=== PATIENT | female | born 1995 | race Caucasian/White ===

== ENCOUNTER 2023-01-11 12:45 | Outpatient (REF) | payer MEDICAID, SELFPAY | END 2023-01-11 12:46 | disposition home or self-care (01) | LOC: HO.LNP 12:45 | PROVIDERS: PCP Internal Medicine; Visit Provider Obstetrics & Gynecology | DX: R87.612 Low grade squamous intraepithelial lesion on cytologic smear of cervix (LGSIL) (principal) | CPT/HCPCS: 57454; 88305 ==

== ENCOUNTER 2023-02-16 14:37 | Outpatient (AMB) | payer MEDICAID, SELFPAY ==
[2023-02-16 14:37] VITALS: BP 118/70; BMI 22.1
--- NOTE | 2023-02-16 14:37 | A.OFFVIS_ITS ---
Intake Vital Signs 02/16/23 14:37 Height 5 ft 5 in Weight 133 lb BMI 22.1 BP 118/70 Blood Pressure Location Lt brachial Position Sitting Intake Visit Reasons: colpo follow up ok per whitney Allergies No Known Allergies Allergy (Unverified 02/16/23 14:39) HPI HPI Comments History of Present Illness Details Presenting post colpo for follow-up. The patient is doing well with no complaints. The pathology showed the following: A. Endocervix, curettage: Endocervical glandular mucosa; negative for dysplasia; no squamous mucosa present. B. Cervix, 1:00, biopsy: Squamous and endocervical glandular mucosa with marked inflammation and reactive changes; negative for dysplasia. C. Cervix, 3:00, biopsy: Squamous and endocervical glandular mucosa with marked inflammation and focal atypia consistent with low-grade squamous intraepithelial lesion (mild dysplasia, MICHAELA I). D. Cervix, 5:00, biopsy: Squamous and endocervical glandular mucosa with marked inflammation and reactive changes; negative for dysplasia. E. Cervix, 6:00, biopsy: Squamous and endocervical glandular mucosa with inflammation and reactive changes; negative for dysplasia. F. Cervix, 7:00, biopsy: Squamous and endocervical glandular mucosa with inflammation; negative for dysplasia. G. Cervix, 9:00, biopsy: Squamous and endocervical glandular mucosa; negative for dysplasia. H. Cervix, 11:00, biopsy: Squamous and endocervical glandular mucosa with marked inflammation and reactive changes; negative for dysplasia. I. Cervix, 12:00, biopsy: Squamous and endocervical glandular mucosa; negative for dysplasia. PFSH Family History Father Asthma Paternal Grandmother Diabetes Mother Pneumonia Paternal Grandfather Prostate cancer Social History Household Members: Family Housing: Apartment Alcohol intake: current Alcohol intake frequency: holidays/special occasions only Patient Tobacco Use Status: Former Tobacco user Current occupational status: employed Current occupation: [employer] Sexual orientation: Straight/Heterosexual Gender identity: Female Female Reproductive History Menstrual Date of last menstrual period: 01/24/23 Review of Systems Const All systems reviewed & are unremarkable except as noted in HPI and below Reports as per HPI and Reports no additional complaints GI Reports no additional complaints Reports no additional complaints Physical Exam Vital Signs: Last Vital Signs BP 118/70 02/16/23 14:37 BMI result Body Mass Index 22.1 Assessment & Plan Assessment & Plan (1) Dysplasia of cervix, low grade (MICHAELA 1): Code(s): N87.0 - Mild cervical dysplasia Plan: Discussed with the patient the pathology results of the colposcopy biopsies & endocervical curettage ( mild dysplasia-MICHAELA 1). Discussed with the patient the sensitivity specificity, positive and negative predictive value in detecting cervical cancer in addition discussed the regression, persistence and progression rates. Recommended co-testing in 12 months, if cytology and or HPV are abnormal will proceed was colposcopy biopsy and endocervical curettage, if lesions gets worse or stays persistent for 2 years will proceed with loop electric excision procedure. Instructions given to the patient to schedule a co test appointment in 1 year. All questions answered the patient verbalized understanding. Coding Level of Care Code Est Pt Level 3 (77845) Diagnoses Dysplasia of cervix, low grade (MICHAELA 1) N87.0
== END 2023-02-16 14:57 | disposition home or self-care (01) ==
LOC: HO.HWS 14:37
PROVIDERS: PCP Internal Medicine; Visit Provider Obstetrics & Gynecology
DX: N87.0 Mild cervical dysplasia (principal)
CPT/HCPCS: 99213

== ENCOUNTER → 2023-02-16 14:37 | Outpatient (BNVA) | payer MEDICAID, SELFPAY | PROVIDERS: PCP Internal Medicine; Visit Provider Obstetrics & Gynecology | DX: N87.0 Mild cervical dysplasia (principal) | CPT/HCPCS: 99212 ==

== ENCOUNTER 2023-12-05 14:54 | Outpatient (REF) | payer MEDICAID, SELFPAY ==
[2023-12-05 16:14] LABS: MANUAL DIFF FLAG NO
[2023-12-05 16:27] LABS: Basophils Percent Auto 0.4 % (0-2); Eosinophils Absolute Auto 0.1 X10*3/uL (0.0-0.4); Eosinophils Percent Auto 0.8 % (0-4); Hematocrit 41.8 % (37.0-47.0); Hemoglobin 14.3 g/dl (12.0-16.0); Imm Gran Abs Auto 0.04 X10*3/uL (0.00-0.03); Imm Gran Pct Auto 0.6 % (0.0-0.4); Lymphocytes Absolute Auto 1.7 X10*3/uL (1.2-4.9); Lymphocytes Percent Auto 22.8 % (20-40); Mean Corpuscular HGB Conc 34.2 g/dl (31.0-35.0); Mean Corpuscular Hemoglobin 30.8 pg (27.0-33.0); Mean Corpuscular Volume 89.9 fL (80.0-98.0); Mean Platelet Volume 10.6 fL (9.4-12.3); Monocytes Absolute Auto 0.6 X10*3/uL (0.1-1.2); Monocytes Percent Auto 7.8 % (2-11); Neutrophils Absolute Auto 4.9 x10*3/uL (2.0-8.3); Neutrophils Percent Auto 67.6 % (45-73); Platelet Count 328 X10*3/uL (160-400); Red Blood Count 4.65 X10*6/uL (4.20-5.50); Red Cell Distribution Width 12.2 % (11.0-16.0); White Blood Count 7.3 X10*3/uL (4.8-10.8)
[2023-12-05 16:53] LABS: Alanine Aminotransferase 12 U/L (0-31); Albumin Level 4.3 g/dL (3.5-5.0); Alkaline Phosphatase 59 U/L (39-117); Anion Gap 12 (12-20); Aspartate Amino Transferase 17 U/L (5-31); Bilirubin Direct 0.2 mg/dL (0.0-0.5); Bilirubin Total 0.4 mg/dL (0.0-1.0); Blood Urea Nitrogen 7 mg/dL (9-16); Calcium 9.6 mg/dL (8.4-10.2); Carbon Dioxide 26 mmol/L (22-29); Chloride 105 mmol/L (96-108); Cholesterol 174 mg/dL (<200); Estimated Glomerular Filt Rate > 60; Glucose Random 96 mg/dL (60-115); HDL Cholesterol 61 mg/dL (>40); LDL Cholesterol Calculated 96 mg/dL (<100); Potassium 3.8 mmol/L (3.3-5.1); Sodium 139 mmol/L (135-145); Total Protein 7.7 g/dL (6.5-8.0); Triglycerides 87 mg/dL (<150)
[2023-12-06 04:26] LABS: HBS Num1 > 1000.00 mIU/mL (0-7.99); HBc Num1 0.07 S/CO (0.00-0.79); HBsAGNum1 0.25 S/CO (0.00-0.99); Hepatitis B Core Antibody Nonreactive (Nonreactive); Hepatitis B Surface Antigen Negative (Negative); ~HepC Num1 0.24 S/CO (0.00-0.79); ~Hepatitis B Surface Antibody REACTIVE (Nonreactive); ~Hepatitis C Antibody Nonreactive (Nonreactive)
[2023-12-06 04:43] LABS: Hepatitis A Antibody IgM 0.21 Index (0-0.79); ~Hepatitis A Antibody IgM Nonreactive (Nonreactive)
[2023-12-06 09:08] LABS: RPR Rapid Plasma Reagin NON-REACTIVE (NON-REACTIVE)
[2023-12-08 15:59] LABS: HIV RNA PCR Qn Copies Not Detected Copies/mL; HIV RNA PCR Qn Log Copies Not Detected Log cps/mL
== END 2023-12-05 14:55 | disposition home or self-care (01) ==
LOC: HO.HHCL 14:54
PROVIDERS: Visit Provider Internal Medicine
DX: Z00.00 Encounter for general adult medical examination without abnormal findings (principal)
CPT/HCPCS: 36415; 80048; 80061; 80076; 85025; 86592; 86704; 86706; 86709; 86803; 87340; 87536; 87900

== ENCOUNTER 2024-09-25 11:03 | Outpatient (REF) | payer MEDICAID, SELFPAY ==
--- NOTE | ~2024-09-25 | XR_ITS ---
EXAMINATION: XR CHEST CLINICAL INFORMATION: One month of cough, wheezing, chest congestion COMPARISON: None available. TECHNIQUE: 2 views of the chest were obtained. FINDINGS: No consolidation, pleural effusion or pneumothorax. Cardiomediastinal silhouette size is normal. Mild S-shaped curvature of the thoracic spine. No hyperinflation. XR/XR chest 2V IMPRESSION: No acute airspace disease. Mild scoliosis, thoracic spine. Electronically signed by: Jason Tarango MD 09/25/2024 11:18 AM BISI
--- OUTSIDE RECORDS SUMMARY | 2024-09-25 13:27 | XMS_ITS | Encounter Summary ---
Author Organization [employer] Address [address] [place] [address] Care Team Providers Care Barrel Scraper Name Role Phone Tiffanie Muñoz MD Primary Care Provide r Encounter Details Date Type Department Care Team (Latest Contact Info) Description 09/11/2024 Travel Social History Tobacco Use Types Packs/Day Years Used Date Smoking Tobacco: Never Passive Smoke Exposure: Never Smokeless Tobacco: Never Alcohol Use Standard Drinks/Week Comments Never 0 (1 standard drink = 0.6 oz pur e alcohol) Alcohol Answer Date Recorded Frequency of Alcohol Consumption Not on file 12/05/2023 Average Number of Drinks Not on file 024 Frequency of Binge Drinking Not on file 12/2023 Score 0 12/05/2023 Depression Answer Date Recorded Patient Health Questionnaire-9 Score 3 09/11/2024 Patient Health Questionnaire-9 Score 3 09/11/2024 Last PHQ-9: Questionnaire Data Not on file 0 09/11/2024 Housing Stability Answer Date Recorded What is your housing situation today? I have ana m hein 11/28/[address] you li ve. Do you have problems with any of the following? None of the above 11/28/2023 Food Insecurity Answer Date Recorded Within the past 12 months, y ou worried that your food would run out before you got money to buy more: Never True 11/28/2023 Within the past 12 months,th e food you bought just didn't last and you didn't have enough money to get more: Never True Transportation Answer Date Recorded In the past 12 months, has l ack of transportation kept you from medical appts, meetings, work or from getting things needed for daily living? No 11/28/2023 Utilities Answer Date Recorded In the past 12 months, has t he electric, gas, oil or water company threatened to shut off services in your home? No 11/28/2023 Depression Answer Date Recorded Patient Health Questionnaire-2 Score 3 09/11/2024 Comments Unknown Sex and Gender Information Value Date Recorded Sex Assigned at Female 05/31/2022 10:18 AM EDT Legal Sex Female 10:18 AM EDT Gender Identity Female 05/31/2022 10:18 AM EDT Sexual Orientation Choose not to disclose 2021 10:18 AM EDT documented as of this encounter Plan of Treatment Upcoming Encounters Date Type Department Care Team (Late st Contact Info) Description 12/11/2024 1:45 PM EDT Office Visit [facility] [address] [place] [phone] Tiffanie Muñoz MD [address] [place] [phone] documented as of this encounter Visit Diagnoses Not on filedocumented in this encounter Additional Health Concerns Assessment Noted Time PHQ-9 Depression Total Score: 3 09/11/19 25 11:16 AM EST documented as of this encounter Care Teams Barrel Scraper Relationship Specialty Start Date End Date Tiffanie Muñoz MD [address] [place] [id number] PCP - General Family Medicine 11/21/18 documented as of this encounter
--- OUTSIDE RECORDS SUMMARY | 2024-09-25 13:27 | XMS_ITS | Encounter Summary ---
Author Organization [employer] Address [address] [place] [address] Care Team Providers Care Respiratory Therapy Manager Name Role Phone Tiffanie Muñoz MD Primary Care Provide r Reason for Visit * Reason Onset Date Comments Med Refill 08/24/2024 Encounter Details Date Type Department Care Team ([facility] st Contact Info) Description 08/24/2024 Refill [facility] [address] [place] [address] Tiffanie Muñoz MD [address] [place] [address] Anxiety with depression Social History Tobacco Use Types Packs/Day Years [...] Answer Date Recorded Patient Health Questionnaire-9 Score 15 07/13/2024 Patient Health Questionnaire-9 Score 15 07/13/2024 Last PHQ-9: Questionnaire Data Not on file 1 09/13/2023 Housing Stability Answer Date Recorded What is [...] Answer Date Recorded Patient Health Questionnaire-2 Score 2 07/13/2024 Comments Unknown Sex and Gender Information Value Date Recorded Sex Assigned at Female 05/31/2022 10:18 AM EDT Legal Sex Female 10:18 AM EDT Gender Identity Female 05/31/2022 10:18 AM EDT Sexual Orientation Choose not to disclose 2021 10:18 AM EDT documented as of this encounter Miscellaneous Notes * Telephone Encounter - Marianela Moreno RN - 08/27/2024 2:08 PM EST Called pt. She states that she has been having a cough and congestion x 1 month. Pt does not have SOB and has not needed her inhaler. Pt. States that nasal congestion and cough is green most of the time and has not gone away with home care recs. Protocol Used: Cough/congestion/phlegm/mucous (Adult) Protocol-Based Disposition: Uber ride ordered for pt. For 08/28/24 at 8am for [facility] walk in clinic. Video visit not offered Positive Triage Questions: * Cough has been present for > 3 weeks *green discharge from nose and lungs * Nasal discharge present > 10 days * All higher-acuity triage questions were negative Care Advice Discussed: * Reassurance and Education - Cough * Cough Medicines * Coughing Spells * Prevent Dehydration * Avoid Tobacco Smoke * Humidifier * Expected Course * Reassurance and Education - Common Cold Symptoms * For a Runny Nose - Blow Your Nose * Nasal Washes for a Stuffy Nose * Nasal Washes - [place] Instructions * Medicines for Stuffy or Runny Nose documented in this encounter Plan of Treatment Upcoming Encounters Date Type Department Care Team (Late st Contact Info) Description 12/11/2024 1:45 PM EDT Office Visit [facility] [address] [place] [address] Tiffanie Muñoz MD [address] [place] [address] documented as of this encounter Visit Diagnoses Diagnosis Anxiety with depression documented in this encounter Additional Health Concerns Assessment Noted Time PHQ-9 Depression Total Score: 15 024 9:04 AM EST documented as of this encounter Care Teams Respiratory Therapy Manager Relationship Specialty Start Date End Date Tiffanie Muñoz MD [address] [place] [phone] PCP - General Family Medicine 11/21/18 documented as of this encounter
--- OUTSIDE RECORDS SUMMARY | 2024-09-25 13:28 | XMS_ITS | Encounter Summary ---
Author Organization [employer] Address [address] [place] [address] Care Team Providers Care [employer] Principal Name Role Phone Tiffanie Muñoz MD Primary Care Provide r Reason for Visit * Reason Onset Date Comments Nurse Triage 07/13/2024 Encounter Details Date Type Department Care Team ([facility] Contact Info) Description 07/13/2024 Telephone [facility] [address] [place] [address] Tiffanie Muñoz MD [address] [place], [place] [phone] Nurse Triage Social History Tobacco Use Types Packs/Day Years [...] the past 12 months, has t he [employer], gas, oil or water company threatened to [...] encounter Miscellaneous Notes * Telephone Encounter - Melani Gaona LPN - 07/13/2024 8:26 AM EST Triage call returned to patient who reports increased symptoms of anxiety and depression. Has worsened over the last week. First started whil with friends began to have shaking and panic for no knowncause. Finds that stress and anxiety makes her chest tight and she is crying for no reason. No changes in work, home, no recent trauma.Reports she was given medication a long time ago but it was too strong and made her sleepy during the day. Has stopped going to gym as she is afraid it will happen there. Eating well. No substance use. Tried a supplement to relieve anxiety x 1 with no noted effect. Denies HI/SI at time of call and agrees for [facility] to meet with her or call her at listed number. Disposition reviewed and patient in agreement with plan. ASK/PCP today at 9am. [facility] updated via 1720 call. Multiple (2) protocols were used on this call. Disposition for Call: See in Office or Video Visit within 3 Days Protocol Used: Anxiety and Panic Attack (Adult) Protocol-Based Disposition: See in Office or Video Visit within 3 Days Video visit not offered Positive Triage Questions: * Moderate anxiety (e.g., persistent or frequent anxiety symptoms; interferes with sleep, school, or work) * Panic attacks are increasing in frequency * All higher-acuity triage questions were negative Care Advice Discussed: * Reasons To Call Back - Anxiety or panic attacks continue - You feel like harming yourself - You become worse Protocol Used: Depression (Adult) Protocol-Based Disposition: See in Office or Video Visit within 3 Days Video visit not offered Positive Triage Questions: * Requesting to talk with a counselor (mental health worker, psychiatrist, etc.) * Patient wants to be seen * All higher-acuity triage questions were negative Care Advice Discussed: * Reasons To Call Back - You feel like harming yourself - You become worse * Telephone Encounter - Nilton Chan - 07/13/2024 8:15 AM EST Symptom: Anxiety or Panic Attack Outcome: Schedule an urgent appointment (within 4 hours) or talk to a nurse or provider soon Reason: Anxiety keeps from normal daily activities (such as school or work) The caller accepted this outcome. Contact pt at [phone] documented in this encounter Plan of Treatment Upcoming Encounters Date Type Department Care Team (Late st Contact Info) Description 12/11/2024 1:45 PM EDT Office Visit [facility] [address] [place] [address] Tiffanie Muñoz MD [address] [place] [address] documented as of this encounter Visit Diagnoses Not on filedocumented in this encounter Additional Health Concerns Assessment Noted Time PHQ-9 Depression Total Score: 15 024 9:04 AM EST documented as of this encounter Care Teams [employer] Principal Relationship Specialty Start Date End Date Tiffanie Muñoz MD [address] [place] [address] PCP - General Family Medicine 11/21/18 documented as of this encounter
--- OUTSIDE RECORDS SUMMARY | 2024-09-25 13:28 | XMS_ITS | Encounter Summary ---
Author Organization [employer] Address [address] [place] [address] Care Team Providers Care Faucet Polisher Name Role Phone Tiffanie Muñoz MD Primary Care Provide r Reason for Visit * Reason Onset Date Comments Hepatitis C Screening 09/10/2024 Encounter Details Date Type Department Care Team ([facility] Contact Info) Description 09/10/2024 Telephone [facility] [address] [place] [address] Kelly Nicholson MA Hepatitis C Screening Social History Tobacco Use Types Packs/Day Years [...] encounter Miscellaneous Notes * Telephone Encounter - Kelly Nicholson MA - 09/10/2024 4:27 PM EST Chart Prep Labs: not applicable Images: not applicable Vaccines due: yes Referrals: complete Screenings: Alcohol/Substance Use Screening HIV Screening Overdue care gaps: SDOH documented in this encounter Plan of Treatment Upcoming Encounters Date Type Department Care Team (Late st Contact Info) Description 12/11/2024 1:45 PM EDT Office Visit [facility] [address] [place] [address] Tiffanie Muñoz MD [address] [place] [address] documented as of this encounter Visit Diagnoses Not on filedocumented in this encounter Additional Health Concerns Assessment Noted Time PHQ-9 Depression Total Score: 15 024 9:04 AM EST documented as of this encounter Care Teams Faucet Polisher Relationship Specialty Start Date End Date Tiffanie Muñoz MD [address] [place] [id number] PCP - General Family Medicine 11/21/18 documented as of this encounter
--- OUTSIDE RECORDS SUMMARY | 2024-09-25 13:28 | XMS_ITS | Clinical Summary ---
Demographics Address [address] [place] [address] Work Phone Mobile Phone Email Address Preferred Language en Marital Status Single Sabianism Affiliation Unknown Race Other Race Ethnic Group or Author Organization [employer] Address [address] [place] [address] Care Team Providers Care Intermodal Customer Service Name Role Phone Tiffanie Muñoz MD Primary Care Provide r Allergies No known active allergies Medications * This document contains information received from the source organization and may not represent a complete record from that organization. triamcinolone (Kenalog) 0.1 % creamIndicatio ns:Rash Apply topically 2 times daily. 45 g 1 12/05/19 24 Active fluticasone (Flonase) 50 MCG/ACT nasal sprayIndicatio ns:Cough in adult patient Administer 1 spray into each nostril Once per day. Shake gently. Before first use, prime pump. After use, clean tip and replace cap. 16 g 1 08/30/19 25 026 Active hydrOXYzine HCl (Atarax) 25 MG tabletIndicati ons:Anxiety with depression Take 1 tablet (25 mg) by mouth every 8 (eight) hours if needed for anxiety for up to 20 days. 30 tablet 1 08/30/19 25 Active albuterol 108 (90 Base) MCG/ACT inhalerIndicat ions:Cough in adult patient Inhale 2 puffs every 6 (six) hours if needed for wheezing. 18 g 08/30/19 25 026 Active sertraline (Zoloft) 50 MG tabletIndicati ons:Depressive disorder,Anxie ty Take 1 tablet (50 mg) by mouth Once per day. 30 tablet 2 09/11/19 25 025 Active cetirizine (ZyrTEC) 10 MG tabletIndicati ons:Seasonal allergies Take 1 tablet (10 mg) by mouth Once per day. 90 tablet 09/11/19 25 Active fluticasone furoate (Arnuity Ellipta) 100 MCG/ACT inhaler Inhale 1 puff Once per day. Rinse mouth with water after use to reduce aftertaste and incidence of candidiasis. Do not swallow. 1 each 09/25/19 25 026 Active cetirizine (ZyrTEC) 10 MG tabletIndicati ons:Seasonal allergies TAKE 1 TABLET BY MOUTH EVERY DAY 90 tablet 1 02/27/20 24 025 Discontinued(Re order (will not trigger notification to Pharmacy)) sertraline (Zoloft) 25 MG tabletIndicati ons:Anxiety with depression Take 1 tablet (25 mg) by mouth Once per day. 30 tablet 1 07/13/20 24 025 Discontinued(Re order (will not trigger notification to Pharmacy)) hydrOXYzine HCl (Atarax) 25 MG tabletIndicati ons:Anxiety with depression Take 1 tablet (25 mg) by mouth every 8 (eight) hours if needed for anxiety for up to 20 days. 30 tablet 1 07/13/20 24 025 Discontinued(Re order (will not trigger notification to Pharmacy)) sertraline (Zoloft) 25 MG tabletIndicati ons:Anxiety with depression Take 1 tablet (25 mg) by mouth Once per day. 30 tablet 1 08/30/19 25 025 Discontinued Active Problems Problem Noted Date Diagnosed Date Anxiety with depression 07/13/2024 Assessment & Plan (07/13/2024 10:05 AM EST): Counseling done today N already intervene today I will start her on sertraline 25mg daily and hydroxyzine 25mg Q 8hrs PRN RTC 4 weeks televisit Encounter for preventive health examination 12/2023 Assessment & Plan (12/05/2023 4:17 PM EDT): See HPI Rash 12/05/2023 Seasonal allergies 12/05/2023 Assessment & Plan (09/11/2024 12:20 PM EST): Advised to try to avoid triggers Cetirizine prescription renewed today Anxiety 12/05/2023 Assessment & Plan (09/11/2024 12:19 PM EST): Extensive counseling done today I will increase her sertraline to 50 mg daily Continue with hydroxyzine 25 mg as needed Assessment & Plan (12/05/2023 4:17 PM EDT): We talked about non-medication interventions for anxiety including exercise, meditation, counseling, mindfulness practices, nataly chi. Also recommend consideration for medication start for persistent daily anxiety negatively impacting quality of life and activities. MICHAELA I (cervical intraepithelial neoplasia I) 12/2023 Assessment & Plan (12/05/2023 4:17 PM EDT): F/u with [facility] has an appointment in 2 months Pap smear for cervical cancer screening 11/10/19 23 Assessment & Plan (11/09/2022 10:26 AM EDT): PAP smear done samples send to lab Pelvic exam done today Patient will be contact with results RTC 1 year for PE Mild intermittent asthma 10/14/2022 Assessment & Plan (12/05/2023 4:17 PM EDT): Controlled c/w current interventions Depressive disorder 06/24/2014 Assessment & Plan (09/11/2024 12:19 PM EST): Sertraline increased to 50 mg daily Counseling done Adjustment disorder with mix ed disturbance of emotions and conduct 10/01/2013 Encounters * This document contains information received from the source organization and may not represent a complete record from that organization. Date Type Department Care Team Description 09/25/2024 10:00 AM EST Office Visit [facility] [address] [place] [phone] Name, MD Rj Cough in adult patient (Primary Dx); Wheezing; Chest congestion; Flu-like symptoms 09/24/2024 Telephone [facility] [address] [place] [address] Tiffanie Muñoz MD Nurse Triage 09/11/2024 11:30 AM EST Telemedicine [facility] [address] [place] [address] Tiffanie Muñoz MD Depressive disorder (Primary Dx); Anxiety; Seasonal allergies 09/11/2024 Travel 09/10/2024 Telephone [facility] [address] [place] [address] Kelly Nicholson [place] Hepatitis C Screening 08/30/2024 2:00 PM EST Office Visit [facility] [address] [place] [address] Renetta Caldera NP Cough in adult patient; Anxiety with depression 08/24/2024 Refill [facility] [address] [place] [address] Tiffanie Muñoz MD Anxiety with depression 07/13/2024 9:00 AM EST Office Visit [facility] [address] [place] [phone] Tiffanie Muñoz MD Anxiety with depression (Primary Dx) 07/13/2024 Travel 07/13/2024 Telephone [facility] [address] [place] [address] Tiffanie Muñoz MD Nurse Triage from Last 3 Months Immunizations Name Administration Dates Next Due DTaP 10/18/2000, 8,1997,06/03 HPV 9-Valent 11/09/2018,11/14/2015 HPV, Quadrivalent 10/31/2013 Hep B, Adolescent or Pediatric 1997,1997,1997 Hib (HbOC) 08/31/2000,199 8,1997,06/03 IPV 08/24/2001,199 8,1997,06/03 Influenza injectable quadriv alent preservative free 04/08/2020,05/12/2016,08/07/2014 Influenza, Split (incl. grover fied surface antigen) 10/31/2013,06/16/2012 MMR 08/24/2001,08/31/2000 Meningococcal MCV4P [id number]-135 10/19/2013 Moderna Covid-19 Vaccine 12+ 01/27/2021 Pfizer Covid-19 Vaccine 12+ 01/27/2021 Tdap 12/05/2023,10/19/2013 Social History Tobacco Use Types Packs/Day Years Used Date Smoking Tobacco: Never Passive Smoke Exposure: Never Smokeless Tobacco: Never Tobacco Cessation:Counseling Given: Not Answered Alcohol Use Standard Drinks/Week Comments Never 0 [...] not to disclose 2021 10:18 AM EDT Last Filed Vital Signs Vital Sign Reading Time Taken Comments Blood Pressure 125/69 09/25/2024 10:21 AM EST Pulse 89 09/25/2024 10:21 AM EST Temperature 36.9 ??C (98.4 ??F) 09/25/2024 10:[address] Respiratory Rate 18 09/25/2024 10:21 AM EST Oxygen Saturation 98% 09/25/2024 10:21 AM EST Inhaled Oxygen Concentration - - Weight 65.8 kg (145 lb) 09/25/2024 10:21 AM EST Height 165.1 cm (5' 5 ) 07/13/2024 9:02 AM EST Body Mass Index 24.13 07/13/2024 9:02 AM EST Plan of Treatment Upcoming Encounters Date Type Department Care Team (Late st Contact Info) Description 12/11/2024 1:45 PM EDT Office Visit [facility] [address] [place], [place] [phone] Tiffanie Muñoz MD [address] [place], [place] [phone] Health Maintenance Due Date Last Done Comments HIV Screening 1997 Hepatitis B Vaccines (4 of 4 - 4-dose series) 1997 1997, 1997, 1997 Family Planning (PISQ) 2012 Pneumococcal Vaccine: Pediatrics (0 to 5 Years) and At-Risk Patients (6 to 49) Years) (1 of 2 - PCV) 2016 COVID-19 Vaccine ( season) 2024 08/26/2021, 01/27/2021, 01/27/2021, Additional history exists Influenza Vaccine (#1) 2024 , 05/12/2016, 08/07/2014, Additional history exists Alcohol/Substance Use Screening 12/04/2024 12/05/2023 SDOH Screening 12/04/2024 12/05/2023 HPV/Cotest 01/04/2025 01/05/2024 Tobacco Screening 07/13/2025 07/13/2024 Depression Screening 09/11/2025 09/11/2024, 09/11/19 Pap Smear 01/04/2027 01/05/2024, 10/30, 11/09/2022 DTaP/Tdap/Td Vaccines (7 - Td or Tdap) 12/04/2033 12/05/2023, 10/19/2013, 10/18/2000, Additional history exists Zoster Vaccines (1 of 2) 2047 RSV Patients and Patients Aged 60 years or older (1 - 1-dose 75+ series) 2072 HIB Vaccines Completed 08/31/2000, 09/29, 1997, Additional history exists IPV Vaccines Completed 08/24/2001, 09/29, 1997, Additional history exists Meningococcal Vaccine Completed 10/19/2013 HPV Vaccines Completed 11/09/2018, 10/30, 10/31/2013 Hepatitis C Screening Completed 12/05/2023 Hepatitis A Vaccines Aged Out No long er eligible based on patient's age to complete this topic RSV under 20 months Aged Out No longe r eligible based on patient's age to complete this topic Rotavirus Vaccines Aged Out No longer eligible based on patient's age to complete this topic Procedures Procedure Name Priority Date/Time Associated Diagnosis Comments XR CHEST 2 VIEWS Routine 09/25/2024 11:0 4 AM EST Cough in adult patient POCT INFLUENZA B (ID NOW RAPID MOLECULAR) Routine 09/25/2024 10:18 AM EST Flu-like symptoms POCT INFLUENZA A (ID NOW RAPID MOLECULAR) Routine 09/25/2024 10:17 AM EST Flu-like symptoms POCT RAPID COVID ANTIGEN Routine 09/25/2024 10:02 AM EST Flu-like symptoms POCT INFLUENZA B (ID NOW RAPID MOLECULAR) Routine 08/30/2024 1:39 PM EST Cough in adult patient POCT INFLUENZA A (ID NOW RAPID MOLECULAR) Routine 08/30/2024 1:39 PM EST Cough in adult patient POCT RAPID COVID ANTIGEN Routine 08/30/2024 1:28 PM EST Cough in adult patient HM PAP/HPV Routine 01/05/2024 HEPATITIS PANEL, GENERAL Routine 12/05/2023 2:56 PM EDT Encounter for preventive health examination from Last 3 Months or Most Recently Relevant to Health Maintenance Results * XR Chest 2 Views (09/25/2024 11:04 AM EST) Anatomical Region Laterality Modality Chest Radiographic Ashlyn ging 09/25/2024 11:0 4 AM EST Narrative 09/25/2024 11:21 AM EST ?[facility] ?[address] ?[place] [address] ?XRay Report ? Signed ? Patient: Kathleen Allan ?MR#: [id number] ?? [id number] ? : 1995 ?Acct:[id number] ? Age/Sex: 29 / F ?ADM Date: 09/25/24 ? Loc: HO.HHCX ? Attending Dr: Rj Mendoza MD ? Ordering Physician: Rj Mendoza MD ?? Date of Service: 09/25/24 ?? Procedure(s): XR chest 2V ?? Accession Number(s): [id number] ? cc: Rj Mendoza MD ? EXAMINATION: ?? XR CHEST ? CLINICAL INFORMATION: ?? One month of cough, wheezing, chest congestion ? COMPARISON: ?? None available. ? TECHNIQUE: ?? 2 views of the chest were obtained. ? FINDINGS: ?? No consolidation, pleural effusion or pneumothorax. ?? Cardiomediastinal silhouette size is normal. ?? Mild S-shaped curvature of the thoracic spine. ?? No hyperinflation. ? XR/XR chest 2V ?? IMPRESSION: ?? No acute airspace disease. ?? Mild scoliosis, thoracic spine. ? Electronically signed by: ??Jason Tarango MD ??09/25/2024 11:18 AM ?? EST RP ? Dictated By: ?Jason Hagan MD ? Signed By: ?<Electronically signed by Jason Velazquez MD in OV> ? 09/25/24 1118 ? DD/ 1104 ? TD/TT: 09/25/24 1114 ? Director Of Community Services: ? Procedure Note Donotuseinterpreter, Image - 09/25/2024 [facility] [address] [place] [address] XRay Report Signed Patient: Kathleen Allan [facility]#: [id number] : 1995Acct:[id number] Age/Sex: 29 / FADM Date: 09/25/24 Loc: .HHX Attending Dr: Rj Mendoza MD Ordering Physician: Rj Mendoza MD Date of Service: 09/25/24 Procedure(s): XR chest 2V Accession Number(s): [id number] cc: Rj Mendoza MD EXAMINATION: XR CHEST CLINICAL INFORMATION: One month of cough, wheezing, chest congestion COMPARISON: None available. TECHNIQUE: 2 views of the chest were obtained. FINDINGS: No consolidation, pleural effusion or pneumothorax. Cardiomediastinal silhouette size is normal. Mild S-shaped curvature of the thoracic spine. No hyperinflation. XR/XR chest 2V IMPRESSION: No acute airspace disease. Mild scoliosis, thoracic spine. Electronically signed by: Jason Tarango MD 09/25/2024 11:18 AM EST Dictated By: Jason Hagan MD Signed By: <Electronically signed by Jason Velazquez MDin OV> 09/25/24 1118 DD/ 1104 TD/TT: 09/25/24 1114 Director Of Community Services: us Rj Mendoza MD IMG XR PROCEDURES Final Result * Influenza B (ID NOW Rapid Molecular) (09/25/2024 10:18 AM EST) Only the most recent of2 resultswithin the time period is included. Influenza B Negative Negative, Indeterminate [facility] Swab 09/25/2024 10:1 8 AM EST us Rj Mendoza MD POINT OF CARE TEST ENTER/EDIT OR DERABLES Final Result Performing Organization Address City/[facility]/ZIP Co de Phone Number [facility] [address] [place] [address] [phone] * Influenza A (ID NOW Rapid Molecular) (09/25/2024 10:17 AM EST) Only the most recent of2 resultswithin the time period is included. [facility] Influenza A Negative Negative, Indeterminate [facility] Swab 09/25/2024 10:1 7 AM EST Rj Name POINT OF CARE TEST ENTER/EDIT OR DERABLES Final Result Performing Organization Address [facility] Co de Phone Number [facility] [address] [place] [phone] * POCT Rapid COVID Ag (09/25/2024 10:02 AM EST) Only the most recent of2 resultswithin the time period is included. [facility] Rapid COVID Ag Negative Swab 09/25/2024 10:0 2 AM EST Rj Mendoza MD POINT OF CARE TEST ENTER/EDIT OR DERABLES Final Result * HM PAP/HPV (01/05/2024) [facility] Pap Smear 1. NILM 1. NILM HPV Not Detected Undetected, Indeterminat e, Quantitative , Not Detected [facility] Provider HEALTH MAINTENANCE Final Result * Hepatitis Panel, General (12/05/2023 2:56 PM EDT) [facility] Hepatitis A IgM Nonreactive Nonreactive [facility] Comment:IgM antibodies to MULLEN V not detected; does not exclude earlyacute or recovered HAV infection. ~Hepatitis B Surface Antibody REACTIVE Nonreactive [facility] Comment:REACTIVE: > 11.99 mI U/mL Hepatitis B Core Antibody Nonreactive Nonreactive [facility] Hepatitis C Antibody Nonreactive Nonreactive [facility] Comment:Antibodies to HCV no t detected; does not exclude early acuteHCV infection. Hepatitis B Surface Ag Negative Negative [facility] Blood 12/05/2023 2:56 PM EDT 12/05/2023 4:14 PM EDT Tiffanie Rivera MD LAB BLOOD ORDERABLES Final Result [facility] [address] [place] [phone] from Last 3 Months or Most Recently Relevant to Health Maintenance [facility] Care Teams [employer]modal Customer Service Relationship Specialty Start Date End Date Tiffanie Muñoz MD [address] [place] [address] PCP - General Family Medicine 11/21/18
--- OUTSIDE RECORDS SUMMARY | 2024-09-25 13:28 | XMS_ITS | Encounter Summary ---
Author Organization [employer] Address [address] [place] [address] Care Team Providers Care Grease Packer Name Role Phone Tiffanie Muñoz MD Primary Care Provide r Reason for Visit * Reason Comments Cough Encounter Details Date Type Department Care Team ([facility] Contact Info) Description 08/30/2024 2:00 PM EST Office Visit [facility] [address] [place], [place] [phone] Renetta Caldera NP [address] [place], [place] [phone] Cough in adult patient; Anxiety with depression Social History Tobacco Use [...] AM EDT documented as of this encounter Last Filed Vital Signs Vital Sign Reading Time Taken Comments Blood Pressure 130/78 08/30/2024 1:23 PM EST Pulse 98 08/30/2024 1:23 PM EST Temperature 36.8 ??C (98.3 ??F) 08/30/2024 1:23 PM ES T Respiratory Rate 16 08/30/2024 1:23 PM EST Oxygen Saturation 100% 08/30/2024 1:23 PM EST Inhaled Oxygen Concentration - - Weight 67.1 kg (148 lb) 08/30/2024 1:23 PM EST Height - - Body Mass Index 24.63 07/13/2024 9:02 AM EST documented in this encounter Progress Notes * Renetta Caldera NP - 08/30/2024 2:00 PM EST SUBJECTIVE: Kathleen West is a 29 y.o. female who presents to the [facility] for a sick visit. HPI Kathleen reports being sick in July and has persistent cough with mucous that makes her chest feel heavy sometimes. Says she has slight shortness of breath a night because of the mucous. She is able to cough up some of the sputum which she states is clearish-green. She has tried OTC cough medicines, nyquil, and mucinex with little effects Reports history of asthma as a child and bad acid reflux. Review of Systems Constitutional: Negative. Negative for chills and fever. HENT: Positive for congestion. Negative for postnasal drip, sinus pain and sneezing. Respiratory: Positive for cough and shortness of breath. Negative for chest tightness. Cardiovascular: Negative for chest pain. Gastrointestinal: Negative for abdominal pain, constipation, diarrhea and nausea. Genitourinary: Negative for dysuria. Musculoskeletal: Negative for arthralgias, back pain, myalgias and neck pain. Skin: Negative. Negative for rash and wound. Neurological: Negative for weakness, light-headedness and headaches. Psychiatric/Behavioral: Negative for behavioral problems, confusion, decreased concentration and suicidal ideas. OBJECTIVE: Visit Vitals BP 130/78 (BP Location: Left arm, Patient Position: Sitting, BP Cuff Size: Adult) Pulse 98 Temp 98.3 ??F (36.8 ??C) (Oral) Resp 16 Wt 148 lb (67.1 kg) SpO2 100% BMI 24.63 kg/m?? Smoking Status Never BSA 1.75 m?? Patient Active Problem List Diagnosis Adjustment disorder with mixed disturbance of emotions and conduct Depressive disorder Mild intermittent asthma Pap smear for cervical cancer screening Encounter for preventive health examination Rash Seasonal allergies Anxiety MICHAELA I (cervical intraepithelial neoplasia I) Anxiety with depression Physical Exam Vitals reviewed. Constitutional: General: She is not in acute distress. Appearance: Normal appearance. She is not ill-appearing. HENT: Head: Normocephalic and atraumatic. Right Ear: External ear normal. Left Ear: External ear normal. Nose: Nose normal. Mouth/Throat: Pharynx: Uvula midline. Postnasal drip present. No oropharyngeal exudate. Eyes: General: No scleral icterus. Extraocular Movements: Extraocular movements intact. Cardiovascular: Rate and Rhythm: Normal rate and regular rhythm. Pulses: Normal pulses. Heart sounds: Normal heart sounds. Pulmonary: Effort: Pulmonary effort is normal. No respiratory distress. Breath sounds: Normal breath sounds. Musculoskeletal: General: Normal range of motion. Cervical back: Normal range of motion and neck supple. Lymphadenopathy: Cervical: No cervical adenopathy. Neurological: General: No focal deficit present. Mental Status: She is alert and oriented to person, place, and time. Gait: Gait normal. Psychiatric: Mood and Affect: Mood normal. Behavior: Behavior normal. Assessment/Plan Diagnoses and all orders for this visit: Cough in adult patient Comments: -POCT COVID, Flu negative today -trial flonase as psotnasal gtt may be triggering the cough -continue OTC mucinex -increase fluids and avoid dairy products. Suck on cough drops/lozenges -albuterol inhaler prn shortness of breath Orders: - Influenza A (ID NOW Rapid Molecular) - Influenza B (ID NOW Rapid Molecular) - POCT Rapid COVID Ag - fluticasone (Flonase) 50 MCG/ACT nasal spray; Administer 1 spray into each nostril Once per day. Shake gently. Before first use, prime pump. After use, clean tip and replace cap. - albuterol 108 (90 Base) MCG/ACT inhaler; Inhale 2 puffs every 6 (six) hours if needed for wheezing. Anxiety with depression Comments: med refilled per patient request Orders: - sertraline (Zoloft) 25 MG tablet; Take 1 tablet (25 mg) by mouth Once per day. - hydrOXYzine HCl (Atarax) 25 MG tablet; Take 1 tablet (25 mg) by mouth every 8 (eight) hours if needed for anxiety for up to 20 days. documented in this encounter Plan of Treatment Upcoming Encounters Date Type Department Care Team (Late st Contact Info) Description 12/11/2024 1:45 PM EDT Office Visit [facility] [address] [place] [address] Tiffanie Muñoz MD [address] [place] [phone] documented as of this encounter Procedures Procedure Name Priority Date/Time Associated Diagnosis Comments POCT INFLUENZA B (ID NOW RAPID MOLECULAR) Routine 08/30/2024 1:39 PM EST Cough in adult patient POCT INFLUENZA A (ID NOW RAPID MOLECULAR) Routine 08/30/2024 1:39 PM EST Cough in adult patient POCT RAPID COVID ANTIGEN Routine 08/30/2024 1:28 PM EST Cough in adult patient documented in this encounter Results * Influenza B (ID NOW Rapid Molecular) (08/30/2024 1:39 PM EST) [facility] Influenza B Negative Negative, Indeterminate [facility] Swab 08/30/2024 1:39 PM EST us Renetta Appram CHECKERING MACHINE OPERATOR POINT OF CARE TEST ENTER/EDIT O RDERABLES Final Result Performing Organization Address City/[facility]/ZIP Co de Phone Number [facility] [address] [place] [phone] * Influenza A (ID NOW Rapid Molecular) (08/30/2024 1:39 PM EST) [facility] Influenza A Negative Negative, Indeterminate [facility] Swab 08/30/2024 1:39 PM EST us Renetta Appram CHECKERING MACHINE OPERATOR POINT OF CARE TEST ENTER/EDIT O RDERABLES Final Result Performing Organization Address [facility]/ZIP Co de Phone Number [facility] [address] [place] [phone] * POCT Rapid COVID Ag (08/30/2024 1:28 PM EST) [facility] Rapid COVID Ag Negative Swab 08/30/2024 1:28 PM EST us Renetta Appram CHECKERING MACHINE OPERATOR POINT OF CARE TEST ENTER/EDIT O RDERABLES Final Result documented in this encounter Visit Diagnoses Diagnosis Cough in adult patient Anxiety with depression documented in this encounter Additional Health Concerns Assessment Noted Time PHQ-9 Depression Total Score: 15 12/2 024 9:04 AM EST documented as of this encounter Care Teams Grease Packer Relationship Specialty Start Date End Date Tiffanie Muñoz MD [address] [place] [phone] PCP - General Family Medicine 11/21/18 documented as of this encounter
--- OUTSIDE RECORDS SUMMARY | 2024-09-25 13:28 | XMS_ITS | Encounter Summary ---
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) Social History Tobacco Use Types Packs/Day Years Used Date Smoking Tobacco: Never Passive Smoke Exposure: Never Smokeless Tobacco: Never Depression Answer Date Recorded Patient Health Questionnaire-9 Score 0 11/09/2022 Depression Answer Date Recorded Patient Health Questionnaire-2 Score 0 11/09/2022 Comments Unknown Sex and Gender Information Value Date Recorded Sex Assigned at Female 05/31/2022 10:18 AM EDT Legal Sex Female 10:18 AM EDT Gender Identity Female 05/31/2022 10:18 AM EDT Sexual Orientation Choose not to disclose 2021 10:18 AM EDT COVID-19 Exposure Response Date Recorded In the last 10 days, have yo u been in contact with someone who was confirmed or suspected to have Coronavirus/COVID-19? No / Unsure 11/09/2022 9:15 AM EDT documented as of this encounter Plan of Treatment Upcoming Encounters Date Type Department Care Team (Late Contact Info) Description 12/11/2024 1:45 PM EDT Office Visit [facility] [address] [place] [address] Tiffanie Muñoz MD [address] [place] [address] documented as of this encounter Procedures Procedure Name Priority Date/Time Associated Diagnosis Comments HEMATOXYLIN AND EOSIN STAIN Routine 01/11/2023 1:41 PM EDT LGSIL on Pap smear of cervix documented in this encounter Results * Hematoxylin and Eosin Stain (01/11/2023 1:41 PM EDT) 01/11/2023 1:41 PM EDT 01/12/2023 7:25 AM EDT [facility] - 01/18/2023 2:11 PM EDT ----- ------- Name: Kathleen Allan ? Age/Sex: 27/F ? : 1995 Unit#: [id number] ?? Attend Dr: Cassius Steiner MD ?Re01/11/23 ?Status: DEP REF ? Location: HO.LNP ?Disch: ? ----- ------- SPEC : [id number] ? RECD: 01/12/23 ? STATUS: ??SOUT ? REQ NUM: [id number] ? LUZ MARINA: 01/11/23 ? SUBM DR: Cassius Steiner MD ? ENTERED: ??01/12/23 ?SP TYPE: Surgical ? OTHR DR: Tiffanie Muñoz MD ? ORDERED: ??HE Stain/, Gross Micro L4/9 ? Diagnosis ?? A. ??Endocervix, curettage: ??Endocervical glandular mucosa; negative for dysplasia; no ?? squamous mucosa present. ? B. ??Cervix, 1:00, biopsy: ??Squamous and endocervical glandular mucosa with marked ?? inflammation and reactive changes; negative for dysplasia. ? C. ??Cervix, 3:00, biopsy: ??Squamous and endocervical glandular mucosa with marked ?? inflammation and focal atypia consistent with low-grade squamous intraepithelial lesion ?? (mild dysplasia, MICHAELA I). ? D. ??Cervix, 5:00, biopsy: ??Squamous and endocervical glandular mucosa with marked ?? inflammation and reactive changes; negative for dysplasia. ? E. ??Cervix, 6:00, biopsy: ??Squamous and endocervical glandular mucosa with inflammation ?? and reactive changes; negative for dysplasia. ? F. ??Cervix, 7:00, biopsy: ??Squamous and endocervical glandular mucosa with inflammation; ?? negative for dysplasia. ? G. ??Cervix, 9:00, biopsy: ??Squamous and endocervical glandular mucosa; negative for ?? dysplasia. ? H. ??Cervix, 11:00, biopsy: ??Squamous and endocervical glandular mucosa with marked ?? inflammation and reactive changes; negative for dysplasia. ? I. ??Cervix, 12:00, biopsy: ??Squamous and endocervical glandular mucosa; negative for ?? dysplasia. ? Comment: ??No previous Pap test at [facility] for correlation. ?Clinical History LGSIL on pap smear of cervix ?Microscopic Description Microscopic sections reviewed. ? CONTINUED ON NEXT PAGE ----- ------- Name: Kathleen Allan ? Age/Sex: 27/F ? : 1995 Unit#: [id number] ?? Attend Dr: Cassius Steiner MD ?Re01/11/23 ?Status: DEP REF ? Location: HO.LNP ?Disch: ? ----- ------- SPEC : [id number] ? RECD: 01/12/23 ? STATUS: ??SOUT ? REQ NUM: [id number] ? LUZ MARINA: 01/11/23 ? SUBM DR: Cassius Steiner MD ? ENTERED: ??01/12/23 ?SP TYPE: Surgical ? OTHR DR: Tiffanie Muñoz MD ? ORDERED: ??HE /, Gross Micro L4/9 ? Material Received ?? A: ECC ?? B: Cx bx 1 o'clock ?? C: Cx bx 3 o'clock ?? D: Cx bx 5 o'clock ?? E: Cx bx 6 o'clock ?? F: Cx bx 7 o'clock ?? G: Cx bx 9 o'clock ?? H: Cx bx 11 o'clock ?? I: Cx bx 12 o'clock ? Gross Description Received in 9 parts. Part A: ??Received in formalin labeled ?ECC? is a 0.4 x 0.3 x 0.1 cm aggregate of mucus and blood and delicate threads of douglas-brown tissue. ??The specimen is submitted in toto in a single cassette labeled A. Part B: ??Received in formalin labeled ?cx bx 1? is a 0.35 cm in greatest dimension glistening, semitranslucent, rubbery, douglas, wedge-shaped fragment of mucosa which is submitted in toto in a single cassette labeled B. Part C: ??Received in formalin labeled ?cx bx 3? along with a scant amount of cloudy globoid mucus is a 0.35 cm in greatest dimension glistening, semitranslucent, rubbery, genao-white wedge-shaped fragment of mucosa which is submitted in toto in a single cassette labeled C. Part D: ??Received in formalin labeled ?cx bx 5? is a 0.5 cm in greatest dimension glistening, semitranslucent, rubbery, genao-white wedge-shaped fragment of mucosa which is submitted in toto in a single cassette labeled D. Part E: ??Received in formalin labeled ?cx bx 6? is a 0.6 cm in greatest dimension glistening, semitranslucent, rubbery, douglas wedge-shaped fragment of mucosa which is submitted in toto in a single cassette labeled E. Part F: ??Received in formalin labeled ?cx bx 7? is a 0.6 cm in greatest dimension glistening, semitranslucent, rubbery, douglas wedge-shaped fragment of mucosa which is submitted in toto in a single cassette labeled F. Part G: ??Received in formalin labeled ?cx bx 9? is a 0.6 cm in greatest dimension glistening, semitranslucent, rubbery, douglas, wedge-shaped fragment of mucosa which is submitted in toto in a single cassette labeled G. ? CONTINUED ON NEXT PAGE ----- ------- Name: Kathleen Allan ? Age/Sex: 27/F ? : 1995 Unit#: [id number] ?? Attend Dr: Cassius Steiner MD ?Re01/11/23 ?Status: DEP REF ? Location: HO.LNP ?Disch: ? ----- ------- SPEC : [id number] ? RECD: 01/12/23 ? STATUS: ??SOUT ? REQ NUM: [id number] ? LUZ MARINA: 01/11/23 ? SUBM DR: Cassius Steiner MD ? ENTERED: ??01/12/23 ?SP TYPE: Surgical ? OTHR DR: Tiffanie Muñoz MD ? ORDERED: ??HE Stain/26, Gross Micro L4/9 ? Gross Description ?(Continued) Part H: ??Received in formalin labeled ?cx bx 11? is a 0.45 cm in greatest dimension glistening, semitranslucent, rubbery, douglas rectangular fragment of mucosa which is submitted in toto in a single cassette labeled H. Part I: ??Received in formalin labeled ?cx bx 12? is a 0.45 cm in greatest dimension glistening, semitranslucent, douglas, wedge-shaped fragment of mucosa which is submitted in toto in a single cassette labeled I. CEDS Copies To: ?? Tiffanie Muñoz MD ?? [address] [facility] ?? [place] [address] ?? [phone] ?? Cassius Steiner MD ?? [address] [facility] ?? [place] [address] ?? [phone] ----- ------- Signed (signature on file) Paula Jessica 01/18/23 1411 ? ----- ------- ? END OF REPORT ? us [facility] External Provider LAB BLO OD ORDERABLES Final Result [facility] [address] [place] [address] [phone] documented in this encounter Visit Diagnoses Diagnosis LGSIL on Pap smear of cervix- Primary documented in this encounter Additional Health Concerns Assessment Noted Time PHQ-9 Depression Total Score: 0 11/10/19 23 9:26 AM EDT documented as of this encounter Care Teams Fire Warden Relationship Specialty Start Date End Date Tiffanie Muñoz MD [address] [place] [address] PCP - General Family Medicine 11/21/18 documented as of this encounter
--- OUTSIDE RECORDS SUMMARY | 2024-09-25 13:28 | XMS_ITS | Encounter Summary ---
Author Organization [employer] Address [address] [place] [address] Care Team Providers Care Runstitching Machine Operator Name Role Phone Tiffanie Muñoz MD Primary Care Provide r Reason for Visit * Reason Comments Cough Encounter Details Date Type Department Care Team ([facility] Contact Info) Description 09/25/2024 10:00 AM EST Office Visit [facility] [address] [place], [place] [phone] Name, MD Rj [address] [place] [address] Cough in adult patient (Primary Dx); Wheezing; Chest congestion; Flu-like symptoms Social History Tobacco Use Types Packs/Day Years [...] the past 12 months, has t he [employer], gas, oil or water company threatened to [...] (145 lb) 09/25/2024 10:21 AM EST Height - - Body Mass Index 24.13 07/13/2024 9:02 AM EST documented in this encounter Progress Notes * Rj Mendoza MD - 09/25/2024 10:00 AM EST Subjective Patient ID: Kathleen West is a 29 y.o. female who presents for Cough. Patient comes complaining of 1 month of nonproductive cough, occasional wheezing, runny nose chest congestion. The patient tells me her symptoms are worse at night. She has a personal history of asthma. At the moment she uses albuterol several times a day and uses daily Flonase. She does not use any preventive inhaler. The patient explains to me that she stopped using preventive inhalers several years ago because her asthma used to be quite mild. No recent fevers or chills. Review of Systems Constitutional: Negative for chills and fever. HENT: Positive for rhinorrhea. Negative for sinus pain. Respiratory: Positive for cough, chest tightness, shortness of breath and wheezing. Cardiovascular: Negative for chest pain. Visit Vitals BP 125/69 (BP Location: Left arm, Patient Position: Sitting, BP Cuff Size: Adult) Pulse 89 Temp 98.4 ??F (36.9 ??C) (Temporal) Resp 18 Wt 145 lb (65.8 kg) SpO2 98% BMI 24.13 kg/m?? Smoking Status Never BSA 1.74 m?? Objective Physical Exam Constitutional: Appearance: Normal appearance. Cardiovascular: Rate and Rhythm: Normal rate and regular rhythm. Heart sounds: No murmur heard. No gallop. Pulmonary: Effort: Pulmonary effort is normal. No respiratory distress. Breath sounds: Normal breath sounds. No wheezing. Musculoskeletal: Right lower leg: No edema. Left lower leg: No edema. Neurological: Mental Status: She is alert. Latest Reference Range & Units 09/25/24 10:02 09/25/24 10:17 09/25/24 10:18 Influenza A Negative, Indeterminate Negative Influenza B Negative, Indeterminate Negative Rapid COVID Ag Negative Assessment/Plan Diagnoses and all orders for this visit: Cough in adult patient Comments: Patient symptoms are consistent with uncontrolled asthma. Today physical exam is unremarkable and she tested negative for COVID and flu. I recommended to start using a preventive inhaler. I sent Arnuity to her pharmacy for daily use. She is encouraged to continue using her albuterol and Flonase as prescribed. Evaluation with chest x-ray. Further recommendation based on the results and her response to the use of Arnuity. I told her she should expect to feel better next week. Orders: - XR Chest 2 Views; Future Wheezing Chest congestion Flu-like symptoms - Influenza A (ID NOW Rapid Molecular) - Influenza B (ID NOW Rapid Molecular) - POCT Rapid COVID Ag Other orders - fluticasone furoate (Arnuity Ellipta) 100 MCG/ACT inhaler; Inhale 1 puff Once per day. Rinse mouth with water after use to reduce aftertaste and incidence of candidiasis. Do not swallow. documented in this encounter Plan of Treatment Upcoming Encounters Date Type Department Care Team (Late st Contact Info) Description 12/11/2024 1:45 PM EDT Office Visit [facility] [address] [place] [address] Tiffanie Muñoz MD [address] [place] [address] documented as of this encounter Procedures Procedure [...] Routine 09/25/2024 10:02 AM EST Flu-like symptoms documented in this encounter Results * XR Chest 2 Views (09/25/2024 11:04 AM EST) Anatomical Region Laterality Modality Chest Radiographic Ashlyn ging 09/25/2024 11:0 4 AM EST Narrative 09/25/2024 11:21 AM EST ?[facility] ?[address] [facility] [address] ?[place] [address] ?XRay Report ? Signed ? Patient: Kamini West,Kathleen Vega ?MR#: [id number] ?? [id number] ? : 1995 ?Acct:[id number] ? Age/Sex: 29 / F ?ADM Date: 02/25/25 ? Loc: HO.HHCX ? Attending Dr: Rj Mendoza MD ? Ordering Physician: Rj Mendoza MD ?? Date of Service: 09/25/24 ?? Procedure(s): XR chest 2V ?? Accession Number(s): [id number] ? cc: Rj Mendoza MD ? EXAMINATION: [...] DD/ 1104 ? TD/TT: 09/25/24 1114 ? Creeler: ? Procedure Note Shantel, Image - 09/25/[address] [address] XRay Report Signed Patient: Kathleen Allan NMR#: [id number] : 1995Acct:[id number] Age/Sex: 29 FADM Date: 09/25/24 Loc: HO.HHCX Attending Dr: Rj Mendoza MD Ordering Physician: Rj Mendoza MD Date of Service: 09/25/24 Procedure(s): XR chest 2V Accession Number(s): [id number] cc: Rj Mendoza MD EXAMINATION: XR CHEST [...] 09/25/24 1118 DD/ 1104 TD/TT: 09/25/24 1114 Creeler: us Rj Mendoza MD IMG XR PROCEDURES Final Result * Influenza B (ID NOW Rapid Molecular) (09/25/2024 10:18 AM EST) Influenza B Negative Negative, Indeterminate [facility] Swab 09/25/2024 10:1 8 AM EST Result Justin Mendoza MD POINT OF CARE TEST ENTER/EDIT OR DERABLES Final Result Performing Organization Address [facility]/ZIP Co de Phone Number [facility] [address] [place] [phone] * Influenza A (ID NOW Rapid Molecular) (09/25/2024 10:17 AM EST) Influenza A Negative Negative, Indeterminate [facility] Swab 09/25/2024 10:1 7 AM EST Result Justin Mendoza MD POINT OF CARE TEST ENTER/EDIT OR DERABLES Final Result Performing Organization Address [facility] Co de Phone Number [facility] [address] [place] [phone] * POCT Rapid COVID Ag (09/25/2024 10:02 AM EST) Rapid COVID Ag Negative Swab 09/25/2024 10:0 2 AM EST Result Justin Mendoza MD POINT OF CARE TEST ENTER/EDIT OR DERABLES Final Result documented in this encounter Visit Diagnoses Diagnosis Cough in adult patient- Primary Wheezing Chest congestion Other symptoms involving respiratory system and chest Flu-like symptoms documented in this encounter Additional Health Concerns Assessment Noted Time PHQ-9 Depression Total Score: 3 09/11/19 25 11:16 AM EST documented as of this encounter Care Teams Runstitching Machine Operator Relationship Specialty Start Date End Date Tiffanie Muñoz MD [address] [place] [address] PCP - General Family Medicine 11/21/18 documented as of this encounter
--- OUTSIDE RECORDS SUMMARY | 2024-09-25 13:28 | XMS_ITS | Encounter Summary ---
Author Organization [facility] Address [address] [place] [address] Care Team Providers Care Slab Grinder Name Role Phone Tiffanie Muñoz MD Primary Care Provide r Reason for Visit * Reason Onset Date Comments Nurse Triage 09/24/2024 Encounter Details Date Type Department Care Team ([facility] Contact Info) Description 09/24/2024 Telephone [facility] [address] [place] [address] Tiffanie Muñoz MD [address] [place], [place] [phone] Nurse Triage Social History Tobacco Use Types [...] Telephone Encounter - Melani Gaona LPN - 09/24/2024 12:57 PM EST Triage call returned to patient who reports that she has been sick since cough and congestion sinceDecember. Feels nauseous due to volume of mucous in her stomach. Is using inhaler frequently thru the day as needed and reports probably more then every 4 hours. Has nasal congestion and reports noseis sore and irritated. Has been using zyrtec and flonase as previously ordered with no noted relief. Has intermittent dizziness no fainting. Offered appt for today and offered [facility] transport and declined reporting that it did not work out last two times. Patient reports availability only tomorrow and Patient also provided [facility] hours and availability for today and tomorrow but wants tosee provider as she was seen in [facility] and felt she did not get full workup and feels that she needs an xray. No PCP appts available to book from Triage within protocol. Forwarded to PCP and team as FYIto follow up PRN Multiple (2) protocols were used on this call. Disposition for Call: Discuss with PCP and Callback by Nurse Today Protocol Used: Cough (Adult) Protocol-Based Disposition: See in Office or Video Visit Today or Tomorrow Override (Final) Disposition: Discuss with PCP and Callback by Nurse Today Override Reason: Caller refused suggested disposition Video visit not offered Positive Triage Question: * Patient wants to be seen * All higher-acuity triage questions were negative Care Advice Discussed: * Prevent Dehydration * Avoid Tobacco Smoke * Reasons To Call Back - Difficulty breathing - You become worse Protocol Used: Dizziness (Adult) Protocol-Based Disposition: See in Office or Video Visit within 3 Days Positive Triage Question: * Mild dizziness (e.g., walking normally) and has NOT been evaluated by physician for this (Exception: Dizziness caused by heat exposure, sudden standing, or poor fluid intake.) * All higher-acuity triage questions were negative * Telephone Encounter - Juana Odonnell - 09/24/2024 12:38 PM EST Symptoms: Cough, Chest Congestion Outcome: Schedule an appointment to be seen within 24 hours Reason: Caller denied all higher acuity questions The caller accepted this outcome. [phone] documented in this encounter Plan of Treatment Upcoming Encounters Date Type Department Care Team (Late st Contact Info) Description 12/11/2024 1:45 PM EDT Office Visit [facility] [address] [place] [address] Tiffanie Muñoz MD [address] [place] [address] documented as of this encounter Visit Diagnoses Not on filedocumented in this encounter Additional Health Concerns Assessment Noted Time PHQ-9 Depression Total Score: 3 09/11/19 25 11:16 AM EST documented as of this encounter Care Teams Slab Grinder Relationship Specialty Start Date End Date Tiffanie Muñoz MD [address] [place] [address] PCP - General Family Medicine 11/21/18 documented as of this encounter
--- OUTSIDE RECORDS SUMMARY | 2024-09-25 13:28 | XMS_ITS | Encounter Summary ---
Author Organization [employer] Address [address] [place] [address] Care Team Providers Care Paper Plate Machine Tender Name Role Phone Tiffanie Muñoz MD Primary Care Provide r Encounter Details Date Type Department Care Team ([facility] st Contact Info) Description 09/11/2024 11:30 AM EST Telemedicine [facility] [address] [place] [address] Tiffanie Muñoz MD [address] [place] [address] Depressive disorder (Primary Dx); Anxiety; Seasonal allergies Social History Tobacco Use Types Packs/Day Years [...] AM EDT documented as of this encounter Progress Notes * Tiffanie Rivera MD - 09/11/2024 11:30 AM EST SUBJECTIVE: Kathleen West is a 29 y.o. year old female who presents for anxiety . Patient reports she has been feeling much better regarding her anxiety and depression, reports hydroxyzine works really good when she needs it, she also tells me sertraline had helped her a lot but she still feels her anxiety is not completely under control Patient also tells me she has been having this cough that has been, chronic with some phlegm Social History Social History Narrative Not on file Patient Active Problem List Diagnosis Adjustment disorder with mixed disturbance of emotions and conduct Depressive disorder Mild intermittent asthma Pap smear for cervical cancer screening Encounter for preventive health examination Rash Seasonal allergies Anxiety MICHAELA I (cervical intraepithelial neoplasia I) Anxiety with depression No family history on file. Review of Systems Constitutional: Negative. HENT: Negative. Respiratory: Positive for cough. Negative for apnea, choking, chest tightness, shortness of breath,wheezing and stridor. Cardiovascular: Negative. Psychiatric/Behavioral: The patient is nervous/anxious. OBJECTIVE: There were no vitals filed for this visit. Follow Up: Follow up in about 3 months (around 12/09/2024) for anxiety/depression . Current Outpatient Medications on File Prior to Visit Medication Sig Dispense Refill albuterol 108 (90 Base) MCG/ACT inhaler Inhale 2 puffs every 6 (six) hours if needed for wheezing. 18 g 0 fluticasone (Flonase) 50 MCG/ACT nasal spray Administer 1 spray into each nostril Once per day. Shake gently. Before first use, prime pump. After use, clean tip and replace cap. 16 g 1 hydrOXYzine HCl (Atarax) 25 MG tablet Take 1 tablet (25 mg) by mouth every 8 (eight) hours if needed for anxiety for up to 20 days. 30 tablet 1 triamcinolone (Kenalog) 0.1 % cream Apply topically 2 times daily. 45 g 1 [DISCONTINUED] cetirizine (ZyrTEC) 10 MG tablet TAKE 1 TABLET BY MOUTH EVERY DAY 90 tablet 1 [DISCONTINUED] sertraline (Zoloft) 25 MG tablet Take 1 tablet (25 mg) by mouth Once per day. 30 tablet 1 No current facility-administered medications on file prior to visit. Problem List Items Addressed This Visit Depressive disorder - Primary Sertraline increased to 50 mg daily Counseling done Relevant Medications sertraline (Zoloft) 50 MG tablet Anxiety Extensive counseling done today I will increase her sertraline to 50 mg daily Continue with hydroxyzine 25 mg as needed Relevant Medications sertraline (Zoloft) 50 MG tablet Seasonal allergies Advised to try to avoid triggers Cetirizine prescription renewed today Relevant Medications cetirizine (ZyrTEC) 10 MG tablet documented in this encounter Miscellaneous Notes * Assessment & Plan Note - Tiffanie Rivera MD - 09/11/2024 12:20 PM EST Associated Problem(s): Seasonal allergies Advised to try to avoid triggers Cetirizine prescription renewed today * Assessment & Plan Note - Tiffanie Rivera MD - 09/11/2024 12:19 PM EST Associated Problem(s): Depressive disorder Sertraline increased to 50 mg daily Counseling done * Assessment & Plan Note - Tiffanie Rivera MD - 09/11/2024 12:19 PM EST Associated Problem(s): Anxiety Extensive counseling done today I will increase her sertraline to 50 mg daily Continue with hydroxyzine 25 mg as needed documented in this encounter Plan of Treatment Upcoming Encounters Date Type Department Care Team (Late st Contact Info) Description 12/11/2024 1:45 PM EDT Office Visit [facility] [address] [place] [phone] Tiffanie Muñoz MD [address] [place] [address] documented as of this encounter Visit Diagnoses Diagnosis Depressive disorder- Primary Depressive disorder, not elsewhere classified Anxiety Anxiety state, unspecified Seasonal allergies Allergic rhinitis, cause unspecified documented in this encounter Additional Health Concerns Assessment Noted Time PHQ-9 Depression Total Score: 3 09/11/19 25 11:16 AM EST documented as of this encounter Care Teams Paper Plate Machine Tender Relationship Specialty Start Date End Date Tiffanie Muñoz MD [address] [place] [phone] PCP - General Family Medicine 11/21/18 documented as of this encounter
== END 2024-09-25 11:04 | disposition home or self-care (01) ==
LOC: HO.HHCX 11:03
PROVIDERS: Visit Provider Internal Medicine Geriatric Medicine
DX: R05.9 Cough, unspecified (principal)
CPT/HCPCS: 71046

== ENCOUNTER → 2024-09-25 11:04 | Outpatient (BNV) | payer MEDICAID, SELFPAY | PROVIDERS: Visit Provider Radiology Diagnostic Radiology | DX: R05.9 Cough, unspecified (principal); R06.2 Wheezing; R09.89 Other specified symptoms and signs involving the circulatory and respiratory systems | CPT/HCPCS: 71046 ==

== ENCOUNTER 2025-03-29 09:05 | Emergency (ER) | payer MEDICAID, SELFPAY ==
[2025-03-29] VITALS (7 sets, daily range): BP systolic 97–125; BP diastolic 54–85; PULSE 64–89; RESP 14–18; TEMP 36.6–37; O2SAT 98–100; BMI 23.0
--- NOTE | ~2025-03-29 | CT_ITS ---
EXAMINATION: CT HEAD WITHOUT CONTRAST CLINICAL INFORMATION: Dizziness COMPARISON: None available. TECHNIQUE: Contiguous axial imaging was performed from the skull base to vertex without intravenous administration of contrast. This CT examination was performed using dose optimization techniques as appropriate, variously including the following: *Automated exposure control *Adjustment of mA and/or kV according to patient size (this includes techniques or standardized protocols for targeted exams where dose is matched to indication/reason for exam; i.e. extremities or head) *Use of iterative reconstruction technique DLP: 660 mGY*cm FINDINGS: There is no acute ischemic change. There is no intracranial hemorrhage. There is no mass-effect or midline shift. Basal cisterns and ventricles are within normal limits for age/cerebral volume. Orbits are symmetrical and unremarkable. Mild mucosal thickening is present in the maxillary sinuses. There is a small mucous retention cyst or polyp in the posterior wall left sphenoid sinus. There is subtle thickening posterior wall right sphenoid sinus and minimal anterior ethmoid sinus mucosal thickening. There are no bony abnormalities. CT/CT head/brain wo IV con IMPRESSION: No acute intracranial abnormality. Mild paranasal sinus mucosal thickening, sparing the frontal sinuses. Electronically signed by: Ken Murray MD 03/29/2025 12:26 PM EDT
--- OUTSIDE RECORDS SUMMARY | 2025-03-29 10:07 | XMS_ITS | Clinical Summary ---
Author Organization [employer] Address [address] [place] [address] Care Team Providers Care Qa Consultant Name Role Phone Tfifanie Muñoz MD Primary Care Provide r Allergies No known active allergies Medications * This document contains information received from the source organization and may not represent a complete record from that organization. triamcinolone (Kenalog) 0.1 % creamIndication s:Rash Apply topically 2 times daily. 45 g 1 4 Active hydrOXYzine HCl (Atarax) 25 MG tabletIndicatio ns:Anxiety with depression Take 1 tablet (25 mg) by mouth every 8 (eight) hours if needed for anxiety for up to 20 days. 30 tablet 1 5 Active albuterol 108 (90 Base) MCG/ACT inhalerIndicati ons:Cough in adult patient Inhale 2 puffs every 6 (six) hours if needed for wheezing. 18 g 5 08/30/19 26 Active fluticasone furoate (Arnuity Ellipta) 100 MCG/ACT inhaler Inhale 1 puff Once per day. Rinse mouth with water after use to reduce aftertaste and incidence of candidiasis. Do not swallow. 1 each 11 5 09/25/19 26 Active fluticasone (Flonase) 50 MCG/ACT nasal sprayIndication s:Cough in adult patient INSTILL 1 SPRAY IN EACH NOSTRIL ONCE DAILY. 48 g 5 Active cetirizine (ZyrTEC) 10 MG tabletIndicatio ns:Seasonal allergies TAKE 1 TABLET (10 MG) BY MOUTH ONCE PER DAY. 90 tablet 05/12/202 5 Active sertraline (Zoloft) 50 MG tabletIndicatio ns:Depressive disorder,Anxiet y TAKE 1 TABLET BY MOUTH EVERY DAY 30 tablet 2 5 Active Active Problems Problem Noted Date Diagnosed Date Anxiety with depression 07/13/2024 Assessment & Plan (07/13/2024 10:05 AM EST): Counseling done today [facility]N already intervene today I will start her [...] Plan (12/05/2023 4:17 PM EDT): F/u with [facility] has an appointment in 2 months Pap [...] disturbance of emotions and conduct 10/01/2013 Encounters Date Type Department Care Team Description 01/18/2025 Telephone [facility] MEDICINE [address] [place] [address] Tiffanie Muñoz MD 01/10/2025 Patient Outreach [facility] MEDICINE [address] [place], [place] [phone] Tiffanie Muñoz MD Pre-visit Planning ([facility] screening completed on 12/04/2024) from Last 3 Months Immunizations Immunization Administration Dates Next Due DTaP 10/18/2000, 8,1997,06/03 HPV 9-Valent 11/09/2018,11/14/2015 HPV, Quadrivalent 10/31/2013 Hep B, Adolescent or Pediatric 1997,1997,1997 Hib (HbOC) 08/31/2000, 8,1997,06/03 IPV 08/24/2001, 8,1997,06/03 Influenza injectable quadriv alent preservative free [...] Recorded Patient Health Questionnaire-2 Score 3 09/11/2024 Internet Access Answer Date Recorded Internet Access Q1 Yes 12/04/2024 Internet Access Q2 Not on file 12/04/2024 Comments Unknown Sex and Gender Information Value [...] 89 09/25/2024 10:21 AM EST Temperature 36.9 C (98.4 F) 09/25/2024 10:21 AM EST Respiratory Rate 18 09/25/2024 10:21 AM EST Oxygen Saturation 98% 09/25/2024 10:21 AM EST Inhaled Oxygen Concentration - - Weight 65.8 kg (145 lb) 09/25/2024 10:21 AM EST Height 165.1 cm (5' 5 ) 07/13/2024 9:02 AM EST Body Mass Index 24.13 07/13/2024 9:02 AM EST Plan of Treatment Health Maintenance Due Date Last Done Comments HIV Screening 1997 Disability Screening 1997 Hepatitis B Vaccines (4 of 4 - 4-dose series) 1997 1997, 1997, 1997 Alcohol/Substance Use Screening 2009 Family Planning (PISQ) 2012 Pneumococcal Vaccine: Pediatrics (0 to 5 Years) and At-Risk Patients (6 to 49) Years (1 of 2 - PCV) 2016 COVID-19 Vaccine ( season) 2024 08/26/2021, 01/27/2021, 01/27/2021, Additional history exists HPV/Cotest 01/04/2025 01/05/2024 Influenza Vaccine (#1) 2025 , 05/12/2016, 08/07/2014, Additional history exists Tobacco Screening 07/13/2025 07/13/2024 Depression Screening 09/11/2025 09/11/2024, 09/11/19 25 SDOH Screening 12/04/2025 12/04/2024 Pap Smear 01/04/2027 01/05/2024, 10/30, 11/09/2022 DTaP/Tdap/Td [...] on patient's age to complete this topic Meningococcal B Vaccine Aged Out No l onger eligible based on patient's age to complete this topic RSV under 20 months Aged Out No longe r eligible based on patient's age to complete this topic Rotavirus Vaccines Aged Out No longer eligible based on patient's age to complete this topic Procedures Procedure Name Priority Date/Time Associated Diagnosis Comments PAP/HPV Routine 01/05/2024 HEPATITIS PANEL, GENERAL Routine 12/05/2023 2:56 PM EDT Encounter for preventive health examination from Last 3 Months or Most Recently Relevant to Health Maintenance Results * PAP/HPV (01/05/2024) Pap Smear 1. NILM 1. NILM HPV Not Detected Undetected, Indeterminat e, Quantitative , Not Detected us Bea Provider HEALTH MAINTENANCE Final Result * Hepatitis Panel, General (12/05/2023 2:56 PM EDT) Hepatitis A IgM Nonreactive Nonreactive [facility] Comment:IgM antibodies to MULLEN V not detected; does not exclude earlyacute or recovered HAV infection. ~Hepatitis B Surface Antibody REACTIVE Nonreactive [facility] Comment:REACTIVE: > 11.99 mI U/mL Hepatitis B Core Antibody Nonreactive Nonreactive [facility] Hepatitis C Antibody Nonreactive Nonreactive [facility] Comment:Antibodies to HCV no t detected; does not exclude early acuteHCV infection. Hepatitis B Surface Ag Negative Negative [facility] Blood 12/05/2023 2:56 PM EDT 12/05/2023 4:14 PM EDT us Tiffanie Rivera MD LAB BLOOD ORDERABLES Final Result [facility] [address] [place] [address] [phone] from Last 3 Months or Most Recently Relevant to Health Maintenance Insurance [facility] C3 Care Teams Qa Consultant Relationship Specialty Start Date End Date Tiffanie Muñoz MD [address] [place] [phone] PCP - General Family Medicine 11/21/18
--- OUTSIDE RECORDS SUMMARY | 2025-03-29 10:07 | XMS_ITS | Encounter Summary ---
Author Organization [employer] Address [address] [place] [address] Care Team Providers Care Product Management Manager Name Role Phone Tiffanie Muñoz MD Primary Care Provide r Encounter Details Date Type Department Care Team (Late st Contact Info) Description 11/18/2022 Orders Only [facility] MEDICINE [address] [place], [place] [phone] Tiffanie Muñoz MD [address], [place] [phone] LGSIL on Pap smear of cervix (Primary [...] as of this encounter Plan of Treatment Not on file documented as of this encounter Procedures Procedure Name Priority Date/Time Associated Diagnosis Comments HEMATOXYLIN AND EOSIN STAIN Routine 01/11/2023 1:41 PM EDT LGSIL on Pap smear of cervix documented in this encounter Results * Hematoxylin and Eosin Stain (01/11/2023 1:41 PM EDT) 01/11/2023 1:41 PM EDT 01/12/2023 7:25 AM EDT [facility] - 01/18/2023 2:11 PM EDT ----- ------- Name: Kathleen Allan Age/Sex: 27/F : 1995 Unit#: [id number] Attend Dr: Cassius Steiner MD Re01/11/23 Status: DEP REF Location: [facility] Disch: ----- ------- SPEC : [id number] RECD: 01/12/23 STATUS: KARY LINO NUM: [id number] LUZ MARINA: 01/11/[address] [facility] [address]: Cassius Steiner MD ENTERED: 01/12/23 SP TYPE: Surgical OTHR DR: Tiffanie Muñoz MD ORDERED: HE , Gross Micro L4/9 Diagnosis A. Endocervix, curettage: Endocervical glandular mucosa; negative for dysplasia; no squamous mucosa present. B. Cervix, 1:00, biopsy: Squamous and endocervical glandular mucosa with marked inflammation and reactive changes; negative for dysplasia. C. Cervix, 3:00, biopsy: Squamous and endocervical glandular mucosa with marked inflammation and focal atypia consistent with low-grade squamous intraepithelial lesion (mild dysplasia, MICHAELA I). D. Cervix, 5:00, biopsy: Squamous and endocervical glandular mucosa with marked inflammation and reactive changes; negative for dysplasia. E. Cervix, 6:00, biopsy: Squamous and endocervical glandular mucosa with inflammation and reactive changes; negative for dysplasia. F. Cervix, 7:00, biopsy: Squamous and endocervical glandular mucosa with inflammation; negative for dysplasia. G. Cervix, 9:00, biopsy: Squamous and endocervical glandular mucosa; negative for dysplasia. H. Cervix, 11:00, biopsy: Squamous and endocervical glandular mucosa with marked inflammation and reactive changes; negative for dysplasia. I. Cervix, 12:00, biopsy: Squamous and endocervical glandular mucosa; negative for dysplasia. Comment: No previous Pap test at [facility] for correlation. Clinical History LGSIL on pap smear of cervix Microscopic Description Microscopic sections reviewed. CONTINUED ON NEXT PAGE ----- ------- Name: Kathleen Allan Gary Age/Sex: 27/F : 1995 [facility]#: [id number] Unit#: [id number] Attend Dr: Cassius Steiner MD Re01/11/23 Status: DEP REF Location: [facility] Disch: ----- ------- SPEC : [id number] RECD: 01/12/23 STATUS: KARY LINO NUM: [id number] LUZ MARINA: 01/11/2313[address] [facility] [address]: Cassius Steiner MD ENTERED: 01/12/23 SP TYPE: Surgical OTHR DR: Tiffanie Muñoz MD ORDERED: HE , Gross Micro L4/9 Material Received A: ECC B: Cx bx 1 o'clock C: Cx bx 3 o'clock D: Cx bx 5 o'clock E: Cx bx 6 o'clock F: Cx bx 7 o'clock G: Cx bx 9 o'clock H: Cx bx 11 o'clock I: Cx bx 12 o'clock Gross Description Received in 9 parts. Part A: Received in formalin labeled ECC is a 0.4 x 0.3 x 0.1 cm aggregate of mucus and blood and delicate threads of douglas-brown tissue. The specimen is submitted in toto in a single cassette labeled A. Part B: Received in formalin labeled cx bx 1 is a 0.35 cm in greatest dimension glistening, semitranslucent, rubbery, douglas, wedge-shaped fragment of mucosa which is submitted in toto in a single cassette labeled B. Part C: Received in formalin labeled cx bx 3 along with a scant amount of cloudy globoid mucus is a 0.35 cm in greatest dimension glistening, semitranslucent, rubbery, genao-white wedge-shaped fragment of mucosa which is submitted in toto in a single cassette labeled C. Part D: Received in formalin labeled cx bx 5 is a 0.5 cm in greatest dimension glistening, semitranslucent, rubbery, genao-white wedge-shaped fragment of mucosa which is submitted in toto in a single cassette labeled D. Part E: Received in formalin labeled cx bx 6 is a 0.6 cm in greatest dimension glistening, semitranslucent, rubbery, douglas wedge-shaped fragment of mucosa which is submitted in toto in a single cassette labeled E. Part F: Received in formalin labeled cx bx 7 is a 0.6 cm in greatest dimension glistening, semitranslucent, rubbery, douglas wedge-shaped fragment of mucosa which is submitted in toto in a single cassette labeled F. Part G: Received in formalin labeled cx bx 9 is a 0.6 cm in greatest dimension glistening, semitranslucent, rubbery, douglas, wedge-shaped fragment of mucosa which is submitted in toto in a single cassette labeled G. CONTINUED ON NEXT PAGE ----- ------- Name: Kathleen Allan Age/Sex: 27/ : 1995 Unit#: [id number] Attend Dr: Cassius Steiner MD Re01/11/23 Status: [facility] Location: [facility] Disch: ----- ------- SPEC : [id number] RECD: 01/12/23 STATUS: KARY LINO NUM: [id number] LUZ MARINA: 01/11/23-[address] [facility] [address]: Cassius Steiner MD ENTERED: 01/12/23 SP TYPE: Surgical OTHR DR: Tiffanie Muñoz MD ORDERED: HE /, Gross Micro L4/9 Gross Description (Continued) Part H: Received in formalin labeled cx bx 11 is a 0.45 cm in greatest dimension glistening, semitranslucent, rubbery, douglas rectangular fragment of mucosa which is submitted in toto in a single cassette labeled H. Part I: Received in formalin labeled cx bx 12 is a 0.45 cm in greatest dimension glistening, semitranslucent, douglas, wedge-shaped fragment of mucosa which is submitted in toto in a single cassette labeled I. CEDS Copies To: Tiffanie Muñoz MD [address] [place] [phone] Cassius Steiner MD [address] [place] [address] [place] [phone] ----- ------- Signed (signature on file) Paula Lopez 01/18/23 1411 ----- ------- END OF REPORT [facility] External Provider LAB BLO OD ORDERABLES Final Result [facility] [address] [place] [address] [phone] documented in this encounter Visit Diagnoses Diagnosis LGSIL on Pap smear of cervix- Primary documented in this encounter Additional Health Concerns Assessment Noted Time PHQ-9 Depression Total Score: 0 11/10/19 23 9:26 AM EDT documented as of this encounter Care Teams Product Management Manager Relationship Specialty Start Date End Date Tiffanie Muñoz MD [address] [place] [address] PCP - General Family Medicine 11/21/18 documented as of this encounter
--- OUTSIDE RECORDS SUMMARY | 2025-03-29 10:08 | XMS_ITS | Encounter Summary ---
Author Organization [facility] Address [address] [place] [address] Care Team Providers Care Liner Assembler Name Role Phone Tiffanie Muñoz MD Primary Care Provide r Reason for Visit * Reason Onset Date Comments Nurse Triage 07/13/2024 Encounter Details Date Type Department Care Team ([facility] st Contact Info) Description 07/13/2024 Telephone [facility] MEDICINE [address] [place] [phone] Tiffanie Muñoz MD [address] [place] [address] Nurse Triage Social History Tobacco Use Types [...] AM EDT documented as of this encounter Functional Status * Over the past 2 weeks, how often have you been bothered by any of the following problems? Question Answer Date of Assessment Author Patient Health Questionnaire -2 Score 2 07/13/2024 9:04 AM Kelly Santiago [place] * Little interest or pleasure in doing things Answer Date of Assessment Author Several days 07/13/2024 9:04 AM Kaushik Santiago [place] * Feeling down, depressed, or hopeless Answer Date of Assessment Author Several days 07/13/2024 9:04 AM Kaushik Santiago [place] * Trouble falling or staying asleep, or sleeping too much Answer Date of Assessment Author Nearly every day 07/13/2024 9:04 AM Kelly Santiago MA * Feeling tired or having little energy Answer Date of Assessment Author Nearly every day 07/13/2024 9:04 AM Kelly Santiago MA * Poor appetite or overeating Answer Date of Assessment Author Nearly every day 07/13/2024 9:04 AM Kelly Santiago MA * Feeling bad about yourself - or that you are a failure or have let yourself or your family down Answer Date of Assessment Author Not at all 07/13/2024 9:04 AM Kaushik Santiago MA * Trouble concentrating on things, such as reading the newspaper or watching television Answer Date of Assessment Author Nearly every day 07/13/2024 9:04 AM Kelly Santiago MA * Moving or speaking so slowly that other people could have noticed? Or the opposite - being so fidgety or restless that you have been moving around a lot more than usual. Answer Date of Assessment Author Several days 07/13/2024 9:04 AM Kaushik Santiago MA * Thoughts that you would be better off or hurting yourself in some way Answer Date of Assessment Author Not at all 07/13/2024 9:04 AM Kaushik Santiago MA * Patient Health Questionnaire-9 Score Answer Date of Assessment Author 15 07/13/2024 9:04 AM Kaushik Santiago MA * How difficult have these problems made it for you to do your work, take care of things at home, or get along with other people? Answer Date of Assessment Author Somewhat difficult 07/13/2024 9:04 AM Kelly Santiago MA * Over the last 2 weeks, how often have you been bothered by any of the following problems? Question Answer Date of Assessment Author Feeling nervous, anxious, or on edge 3 07/13/2024 9:04 AM Kelly Santiago MA Not being able to stop or co ntrol worrying 3 07/13/2024 9:04 AM Kelly Santiago MA Worrying too much about diff erent things 3 07/13/2024 9:04 AM Kelly Santiago MA Trouble relaxing 3 07/13/2024 9:04 AM Kelly Parker MA Being so restless that it is hard to sit still 3 07/13/2024 9:04 AM Kelly Santiago MA Becoming easily annoyed or irritable 1 07/13/2024 9:04 AM Kelly Santiago MA Feeling afraid as if somethi ng awful might happen 3 07/13/2024 9:04 AM Kelly Santiago MA ZAHIDA-7 Total Score 19 07/13/2024 9:04 AM EST Kelly Nicholson MA documented as of this encounter Miscellaneous Notes [...] at time of call and agrees for [facility] to meet with her or call her at listed number. Disposition reviewed and patient in agreement with plan. ASK/PCP today at 9am. I updated via 1720 call. Multiple (2) protocols [...] caller accepted this outcome. Contact pt at [phone] documented in this encounter Plan of Treatment Not on file documented as of this encounter Visit Diagnoses Not on filedocumented in this encounter Additional Health Concerns Assessment Noted Time PHQ-9 Depression Total Score: 15 024 9:04 AM EST documented as of this encounter Care Teams Liner Assembler Relationship Specialty Start Date End Date Tiffanie Muñoz MD [address] [place] [phone] PCP - General Family Medicine 11/21/18 documented as of this encounter
--- NOTE | 2025-03-29 10:11 | ECG_ITS ---
Test Reason : dizziness Blood Pressure : */* mmHG Vent. Rate : 74 BPM Atrial Rate : 74 BPM P-R Int : 134 ms QRS Dur : 76 ms QT Int : 396 ms P-R-T Axes : 31 9 20 degrees QTcB Int : 439 ms Normal sinus rhythm Normal ECG No previous ECGs available Referred By: Andrea Yanez Electronically Signed By: TATE BONILLA
--- NOTE | 2025-03-29 10:14 | ED.GENADULT ---
HPI - General Adult General Chief complaint: Dizziness Stated complaint: dizziness and light headed Time Seen by Provider: 03/29/25 09:47 Source: patient Mode of arrival: ambulatory Limitations: no limitations History of Present Illness ED Provider: Andrea Yanez HPI narrative: 28 yold female healthy presents to ED for dizziness and lightheadedness for the past 4 days. Patient states dizziness described as the room spinning she stands up. Patient denies any slurred speech, facial droop, paralysis of extremities, nausea, vomiting, loss of vision, chest pain, or shortness of breath. Patient denies any photophobia or severe headache. Patient denies any recent trauma. Related Data Previous Rx's ?Medication ?Instructions ?Recorded meclizine 25 mg tablet 25 mg PO TID PRN dizziness #21 tabs 03/29/25 triamcinolone acetonide 55 mcg 2 spray intranasal DAILY #16.9 mL 03/29/25 nasal spray aerosol (Nasacort) Allergies Allergy/AdvReac Type Severity Reaction Status Date / Time No Known Allergies Allergy Verified 03/29/25 09:11 Review of Systems Review of Systems: Dizziness and lightheadedness for the past 4 days Yes all other systems are reviewed and are negative FOR[facility]LY [facility], [facility]1983 Family History Family History Father Asthma Paternal Grandmother Diabetes Mother Pneumonia Paternal Grandfather Prostate cancer Social History Social History Household Members: Family Housing: Apartment Alcohol intake: current Alcohol intake frequency: holidays/special occasions only Patient Tobacco Use Status: Former Tobacco user Current occupational status: employed 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 Sexual orientation: Straight/Heterosexual Gender identity: Female Physical Exam ED Vital Signs: Vital Signs - 24 hr 03/29/25 09:09 03/29/25 10:11 03/29/25 11:00 Temperature 98.6 F Pulse Rate 88 67 73 Respiratory Rate 16 Blood Pressure 125/85 110/60 111/67 Pulse Oximetry 98 Oxygen Delivery Method Room Air 03/29/25 11:01 03/29/25 12:33 03/29/25 14:09 Temperature 98.0 F Pulse Rate 64 89 64 Respiratory Rate 18 18 Blood Pressure 119/72 101/57 L 101/62 Pulse Oximetry 100 98 Oxygen Delivery Method Room Air Room Air 03/29/25 15:33 Temperature 98 F Pulse Rate 64 Respiratory Rate 14 Blood Pressure 97/54 L Pulse Oximetry 98 Oxygen Delivery Method Room Air BMI result Body Mass Index 23.0 Const General: cooperative, healthy appearing, comfortable, no acute distress, well developed, alert, awake and Physically active Orientation/consciousness: patient oriented x3 [facility] Head: Yes normal to inspection, Yes No palpable skull fracture present, Yes normocephalic and Yes atraumatic Eyes General: appearance normal, both eyes and all related structures Neck Neck: Yes normal visual inspection, Yes full ROM, Yes no lymphadenopathy, Yes no meningeal signs, Yes trachea midline, Yes supple, No anterior neck swelling and No tender Chest Chest palpation & inspection: normal inspection of the chest and normal palpation of entire chest wall Resp Effort & Inspection: normal respiratory effort and able to speak in complete sentences Auscultation: clear to auscultation bilaterally Cardio Jugular venous distension: no JVD Heart sounds: S1 normal heart sound present and S2 normal heart sound present GI Inspection: Yes normal to inspection Palpation (GI): Soft to palpation, not firm, nontender, no guarding and not rigid General: Yes no CVA tenderness Back/Spine/Pelvis Back: no CVA tenderness and No back tenderness Skin General skin exam: no rashes or lesions noted, elasticity normal and turgor normal Neuro Other: Negative Romberg. [id number] and rapid head movement intact General: patient oriented x3, gait normal, tone normal, moves all extremities, Normal light touch and pain sensation, no meningeal signs, no focal motor deficits, CN's II-XI intact bilaterally and normal sensation to monofilament Extrem General: Yes normal to inspection, Yes full ROM and Yes capillary refill normal Psych Appearance: grossly normal, well kempt and not disheveled NIH Stroke Scale Internal: Initial- Upon Arrival Level of Consciousness: Alert Level of Consciousness Questions: Answers both questions correctly Level of Consciousness Commands: Performs both tasks correctly Best Gaze: Normal Visual: No visual loss Facial Palsy: Normal Motor Arm (Right): No drift Motor Arm (Left): No drift Motor Leg (Right): No drift Motor Leg (Left): No drift Limb Ataxia: Absent Sensory: Normal Best Language: No aphasia Dysarthia: Normal Extinction and Inattention: No abnormality Score: 0 Medications Administered Discontinued Medications Generic Name Dose Route Start Last Admin Trade Name Freq PRN Reason Stop Dose Admin Sodium Chloride 1,000 mls @ 999 mls/hr 03/29/25 10:12 03/29/25 14:17 Ns IV 03/29/25 11:12 Infused .Q1H1M STA Infusion Sodium Chloride 1,000 mls @ 999 mls/hr 03/29/25 10:13 03/29/25 14:17 Ns IV 03/29/25 11:13 Infused .Q1H1M STA Infusion Meclizine HCl 50 mg 03/29/25 11:26 03/29/25 11:43 Meclizine Hcl 25 Mg Tablet PO 03/29/25 11:27 50 mg ONCE ONE Administration Medical Decision Making Medical Decision Making [facility] Narrative: 30-year-old female presents to ED with dizziness and lightheadedness for the past 4 days. NIH score is 0. Patient denied any distress. Labs EKG HCG fluids ordered. Orthostatics ordered. 2:12pm: Orthostatics negative. Patient's EKG negative STEMI. Heart score is 0 1 troponins is suffice and was negative. Head CT scan negative for stroke or mass. Not suspecting stroke or posterior cerebellar stroke. Not suspecting PE. Patient states meclizine was effective. Patient will be discharged with meds and informed to follow up with primary care provider. Patient explained worrisome signs and informed to return to the ED immediately. Not suspecting PE, meninigitis, carotid dissection, or any other life threatening etiology. not made aware of patient blood pressure of 97/54 before discharge, but patient was well appearing and mentating well throughout ED visit. Differential Diagnosis Differential Diagnoses: The differential diagnosis associated with the presentation includes (Vertigo, orthostatic hypotension, ) Admission/Observation Consideration of admission/observation: Escalation of care including admission/observation considered Lab Data [facility] Lab Attestation statement: I reviewed the patient's lab results. 03/29/25 10:39 03/29/25 10:39 Labs: Lab Results 03/29/25 03/29/25 Range/Units 10:39 12:31 WBC 6.8 (4.8-10.8) X10*3/uL RBC 4.69 (4.20-5.50) X10*6/uL Hgb 14.4 (12.0-16.0) g/dl Hct 41.2 (37.0-47.0) % MCV 87.8 (80.0-98.0) fL MCH 30.7 (27.0-33.0) pg MCHC 35.0 (31.0-35.0) g/dl RDW 11.9 (11.0-16.0) % Plt Count 274 (160-400) X10*3/uL MPV 10.0 (9.4-12.3) fL Immature Gran % (Auto) 0.4 (0.0-0.4) % Neut % (Auto) 61.8 (45-73) % Lymph % (Auto) 28.1 (20-40) % Luna % (Auto) 6.5 (2-11) % Eos % (Auto) 2.8 (0-4) % Baso % (Auto) 0.4 (0-2) % Lymph # (Auto) 1.9 (1.2-4.9) X10*3/uL Luna # (Auto) 0.4 (0.1-1.2) X10*3/uL Eos # (Auto) 0.2 (0.0-0.4) X10*3/uL Baso # (Auto) 0.0 (0.0-0.2) X10*3/uL Abs Immat Gran (auto) 0.03 (0.00-0.03) X10*3/uL Absolute Neuts (auto) 4.2 (2.0-8.3) x10*3/uL Absolute Nucleated RBC 0.000 (0.0-0.012) X10*3/uL Nucleated RBC % (auto) 0.0 (0.0-0.2) /100WBC PT 11.2 (10.9-12.4) SEC INR 1.0 (0.9-1.1) APTT 32.4 (26.7-34.1) SEC Sodium 140 (135-145) mmol/L Potassium 4.0 (3.3-5.1) mmol/L Chloride 108 (96-108) mmol/L Carbon Dioxide 24 (22-29) mmol/L Anion Gap 12 (12-20) BUN 12 (9-16) mg/dL Creatinine 0.71 (0.5-1.4) mg/dL Estim Creat Clear Calc 106.1 Estimated GFR > 60 Random Glucose 95 (60-115) mg/dL Calcium 9.1 (8.4-10.2) mg/dL Total Bilirubin 0.4 (0.0-1.0) mg/dL AST 21 (5-31) U/L ALT 12 (0-31) U/L Alkaline Phosphatase 59 (39-117) U/L Troponin I High Sens 3.4 (<3.5-17.0) ng/L Total Protein 7.6 (6.5-8.0) g/dL Albumin 4.5 (3.5-5.0) g/dL Beta HCG, Quant < 2 mIU/mL Urine Color Yellow Urine Appearance Clear Urine pH 6.5 (5.0-9.0) Ur Specific [place] 1.015 (1.005-1.025) Urine Protein Negative (Neg-Trace) mg/dL Urine Glucose (UA) Negative (Negative) mg/dL Urine Ketones Negative (Negative) mg/dL Urine Blood Negative (Negative) Urine Nitrite Negative (Negative) Ur Leukocyte Esterase Negative (Negative) Independent Interpretation I performed an independent interpretation of an: EKG (EKG negative STEMI) and CT Scan Radiology Impression Discussion of test interpretation with radiology: I have reviewed the radiologist's reading. Independent Historian Clinical information obtained from an independent historian. History obtained from or confirmed by: Other (Patient) Prescription Management I considered prescription management with: Other (Meclizine) Discharge Plan Discharge Clinical Impression: Dizziness Patient Disposition: Home, Self-Care Instructions: Sinusitis (ED), Lightheadedness (ED), Dizziness (ED) Additional Instructions: Your labs EKG came back reassuring. Recommend follow-up with primary care provider. Return to the ED immediately for any slurred speech, facial droop, paralysis of extremities, loss of vision, nausea, vomiting, headache, or any other concerning symptoms. Ordering Physician: Andrea Yanez Date of Service: 03/29/25 Procedure(s): CT head/brain wo IV con Accession Number(s): [id number] cc: Andrea Yanez; Physician,Unknown ~ Report Number: [id number]: Total DLP = 660.00 mGy-cm EXAMINATION: CT HEAD WITHOUT CONTRAST CLINICAL INFORMATION: Dizziness COMPARISON: None available. TECHNIQUE: Contiguous axial imaging was performed from the skull base to vertex without intravenous administration of contrast. This CT examination was performed using dose optimization techniques as appropriate, variously including the following: *Automated exposure control *Adjustment of mA and/or kV according to patient size (this includes techniques or standardized protocols for targeted exams where dose is matched to indication/reason for exam; i.e. extremities or head) *Use of iterative reconstruction technique DLP: 660 mGY*cm FINDINGS: There is no acute ischemic change. There is no intracranial hemorrhage. There is no mass-effect or midline shift. Basal cisterns and ventricles are within normal limits for age/cerebral volume. Orbits are symmetrical and unremarkable. Mild mucosal thickening is present in the maxillary sinuses. There is a small mucous retention cyst or polyp in the posterior wall left sphenoid sinus. There is subtle thickening posterior wall right sphenoid sinus and minimal anterior ethmoid sinus mucosal thickening. There are no bony abnormalities. CT/CT head/brain wo IV con IMPRESSION: No acute intracranial abnormality. Mild paranasal sinus mucosal thickening, sparing the frontal sinuses. Electronically signed by: Ken Murray MD 03/29/2025 12:26 PM EDT RP Prescriptions: New triamcinolone acetonide [Nasacort] 55 mcg aerosol,spray 2 spray intranasal DAILY Qty: 16.9 0RF Rx Instructions: administer into each nostril meclizine 25 mg tablet 25 mg PO TID PRN (Reason: dizziness) Qty: 21 0RF Referrals: [facility] [place] [facility], Internal Medicine] - 2 days Referral Note: Dizziness Patrick Hugo MD [Physician, Neurology] - 2 days Referral Note: Dizziness Clinical Impression: Dizziness Stand Alone Forms: Work/School Release Interventions: ED Discharge Assessment Last Done: 03/29/25 15:33 Discharge Date/Time: 03/29/25 15:34 Print Language: Bermudian
[2025-03-29 10:44] LABS: MANUAL DIFF FLAG NO
[2025-03-29 10:46] LABS: Hematocrit 41.2 % (37.0-47.0); Hemoglobin 14.4 g/dl (12.0-16.0); Imm Gran Abs Auto 0.03 X10*3/uL (0.00-0.03); Imm Gran Pct Auto 0.4 % (0.0-0.4); Lymphocytes Absolute Auto 1.9 X10*3/uL (1.2-4.9); Mean Corpuscular HGB Conc 35.0 g/dl (31.0-35.0); Mean Corpuscular Hemoglobin 30.7 pg (27.0-33.0); Mean Corpuscular Volume 87.8 fL (80.0-98.0); NRBC Abs Auto 0.000 X10*3/uL (0.0-0.012); NRBC Pct Auto 0.0 /100WBC (0.0-0.2); Platelet Count 274 X10*3/uL (160-400); Red Blood Count 4.69 X10*6/uL (4.20-5.50); White Blood Count 6.8 X10*3/uL (4.8-10.8)
[2025-03-29 10:50] LABS: INTERNATIONAL NORM RATIO 1.0 (0.9-1.1); Prothrombin Time 11.2 SEC (10.9-12.4)
[2025-03-29 10:53] LABS: Partial Thromboplastin Time 32.4 SEC (26.7-34.1)
[2025-03-29 11:14] LABS: Troponin-I High Sensitivity 3.4 ng/L (<3.5-17.0)
[2025-03-29 11:17] LABS: Alanine Aminotransferase 12 U/L (0-31); Albumin Level 4.5 g/dL (3.5-5.0); Alkaline Phosphatase 59 U/L (39-117); Anion Gap 12 (12-20); Aspartate Amino Transferase 21 U/L (5-31); Blood Urea Nitrogen 12 mg/dL (9-16); Calcium 9.1 mg/dL (8.4-10.2); Carbon Dioxide 24 mmol/L (22-29); Chloride 108 mmol/L (96-108); Creatinine Clr Calc Pharmacy 106.1; Estimated Glomerular Filt Rate > 60; Potassium 4.0 mmol/L (3.3-5.1); Sodium 140 mmol/L (135-145); Total Protein 7.6 g/dL (6.5-8.0)
[2025-03-29 12:44] LABS: Appearance Urine Clear; Glucose Urine UA Negative (Negative); PH 6.5 (5.0-9.0); Specific Gravity - Urine 1.015 (1.005-1.025)
== END 2025-03-29 15:34 | disposition home or self-care (01) ==
PROVIDERS: Physician Assistant; Emergency Provider Emergency Medicine
DX: R42 Dizziness and giddiness (principal)
CPT/HCPCS: 36415; 70450; 80053; 81003; 84484; 84702; 85025; 85610; 85730; 93005; 96360; 96361; 99284; 99285

== ENCOUNTER → 2025-03-29 10:11 | Outpatient (BNV) | payer MEDICAID, SELFPAY | PROVIDERS: Emergency Provider Emergency Medicine; Visit Provider Internal Medicine | DX: R42 Dizziness and giddiness (principal) | CPT/HCPCS: 93010 ==

== ENCOUNTER → 2025-03-29 11:26 | Outpatient (BNV) | payer MEDICAID, SELFPAY | PROVIDERS: Emergency Provider Emergency Medicine; Visit Provider Radiology Diagnostic Radiology | DX: R42 Dizziness and giddiness (principal) | CPT/HCPCS: 70450 ==